=== PATIENT | male | born 1945 | race Caucasian/White ===

== ENCOUNTER 2017-05-21 16:00 | Inpatient (IN) | payer MEDICARE, BC ==
--- NOTE | 2017-05-23 19:00 | HP ---
HISTORY AND PHYSICAL: DATE OF ADMISSION/SURGERY: 06/05/17 DATE OF OFFICE VISIT: 05/23/17 SURGEON: Kelsie Mcdermott MD * (DICTATED BY ERICKA CHAVARRIA) PROCEDURE: Right total knee arthroplasty. CHIEF COMPLAINT: Right knee pain. HISTORY OF PRESENT ILLNESS: Mr. Park is a 72-year-old gentleman with complaints of right knee pain secondary to advanced osteoarthritis. He has failed conservative management and has elected to proceed with a right total knee arthroplasty, which is scheduled for 06/05/[address] Mcdermott. PAST MEDICAL HISTORY: Pacemaker, AFib, sleep apnea, BPH, hypertension, hyperlipidemia, sick sinus syndrome. PAST SURGICAL HISTORY: Pacemaker placement, tonsillectomy, appendectomy. CURRENT MEDICATIONS: 1. Cardizem 180 mg daily. 2. Saw palmetto. 3. Multivitamin. 4. Vitamin C. 5. Aspirin 81 mg daily. ALLERGIES: Toprol. FAMILY HISTORY: Pancreatic cancer, heart disease and hepatitis. SOCIAL HISTORY: This 72-year-old gentleman lives with his . He does not smoke, use drugs. Uses occasional alcohol. REVIEW OF SYSTEMS: A complete 14-point review of systems was reviewed with the patient, all negative and noncontributory. PHYSICAL EXAMINATION GENERAL: He is well developed, well nourished, in no acute distress. VITAL SIGNS: He stands 5 feet 8 inches tall, weighs 215 pounds. His blood pressure is 148/79, his heart rate is 60. HEENT: Normocephalic, atraumatic. NECK: Supple. No palpable lymph nodes. CARDIO: Regular rate and rhythm. Strong S1 and S2. ABDOMEN: Soft, nontender, and nondistended. NEUROLOGIC: He is alert and oriented x3. Cranial nerves II through XII are intact. MUSCULOSKELETAL: Right lower extremity, the skin is intact. There are no open wounds or abrasions. He has moderate joint effusion of the right knee. His lower extremity muscle group strengths are intact at 5/5. 5 to 120 degrees flexion. No varus or valgus instability. He has 2+ dorsalis pedis pulses and intact sensation. ASSESSMENT AND PLAN: Mr. Park is a 72-year-old gentleman with complaints of right knee pain secondary to advanced osteoarthritis. He has failed conservative management and has elected to proceed with a right total knee arthroplasty, which is scheduled for 06/05/[address] Mcdermott discussed the risks and benefits of the surgery at today's visit and all of his questions were answered. Coumadin, Percocet, Colace were sent to his pharmacy today for postoperative pain control and DVT prophylaxis. ERICKA CHAVARRIA [id number]/[facility] #: [id number] SAHRA
--- NOTE | 2017-11-13 17:02 | HP ---
HISTORY AND PHYSICAL: DATE OF ADMISSION/SURGERY: 11/25/17 DATE OF OFFICE VISIT: 11/12/17 SURGEON: Kelsie Mcdermott MD * (DICTATED BY ERICKA CHAVARRIA) PROCEDURE: Right total knee arthroplasty. CHIEF COMPLAINT: Right knee pain. HISTORY OF PRESENT ILLNESS: Mr. Park is a 72-year-old gentleman with end- stage osteoarthritis of the right knee. He has failed conservative management, elected to proceed with the right total knee arthroplasty, which is scheduled for 11/25/[address] Mcdermott. PAST MEDICAL HISTORY: AFib, high cholesterol, hypertension, BPH, sick sinus syndrome, sleep apnea, pacemaker. PAST SURGICAL HISTORY: Pacemaker placement, tonsillectomy. CURRENT MEDICATIONS: 1. Aspirin 81 mg daily. 2. Cardizem 180 mg daily. 3. Saw palmetto twice daily. 4. Multivitamin. 5. Vitamin C. ALLERGIES: To TOPROL. FAMILY HISTORY: Pancreatic cancer and heart disease. SOCIAL HISTORY: He is a 72-year-old gentleman who lives with his . He does not smoke or use drugs. Uses occasional alcohol. REVIEW OF SYSTEMS: A complete 14-point review of systems was reviewed with the patient; it was all negative or noncontributory. PHYSICAL EXAMINATION GENERAL: He is well developed, well nourished, in no acute distress. VITAL SIGNS: He stands 5 feet 8 inches tall, weighs 215 pounds. His blood pressure 130/86, his heart rate is 70. HEENT: Normocephalic, atraumatic. NECK: Supple. No palpable lymph nodes. PULMONARY: Lungs are clear to auscultation bilaterally. CARDIO: Regular rate and rhythm. Strong S1, S2. ABDOMEN: Soft, nontender, nondistended. MUSCULOSKELETAL: Right lower extremity, skin is intact. There are no open wounds or abrasions. He has tenderness over the medial and lateral joint line. 10 to 120 degrees of flexion. Varus alignment. No varus or valgus instability. Negative Tramaine's. 2+ dorsalis pedis pulses. 5/5 lower extremity strength and intact sensation. NEUROLOGICAL: Alert and oriented x3. Cranial nerves II through XII are intact. ASSESSMENT AND PLAN: Mr. Park is a 72-year-old gentleman with complaints of right knee pain secondary to end-stage osteoarthritis. He has failed conservative management, elected to proceed with a right total knee arthroplasty , which is scheduled for 11/25/[address] Mcdermott discussed the risks and benefits of the surgery at today's visit and all of his questions were answered. Coumadin, Colace, and Percocet were sent to his pharmacy for postoperative pain control and DVT prophylaxis. He will follow with Dr. Mcdermott 2 weeks after the surgery. ERICKA CHAVARRIA [id number]/[facility] #: [id number] MTDRonda
[2017-11-24] MEDS ORDERED: Buffered Lidocaine 0.9% SYRIN* 5 ML/SYR SYRINGE INTRADERM ONE (13:56)
--- OUTSIDE RECORDS SUMMARY | 2017-11-25 11:14 | XMS REPORT ---
:1945 External Reference #:[id number] Author Organization [facility] Address [address] [address] Phone [phone] Care Team Providers Name Role Phone Yosvany Ruiz DO Care Team Information Hat Binder Unavailable Payers Type Date Identification Numbers Payment Provider Subscriber Medicare Primary Effective: Policy Number: Medicare Fausto Park 2010 [id number] PayID: [id number] [address] [place] [address] [facility] Policy Number: [id number] [facility] Fausto Park PayID: [id number] [address] [place] [address] Problems Date Description Provider Status Onset: 07/27/2013 Benign prostatic hypertrophy without Yosvany Ruiz DO Active outflow obstruction Onset: 07/27/2013 Mixed hyperlipidemia Yosvany Ruiz DO Active Onset: 07/27/2013 Benign essential hypertension Yosvany Ruiz DO Active Onset: 02/07/2015 Pure hypercholesterolemia Active Onset: 02/08/2015 Atrial fibrillation Yosvany Ruiz DO Active Social History Type Date Description Comments Education Highest level completed, Doctorate Marital Status 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 ETOH Use Occasionally consumes wine Smoking Patient has never smoked Daily Caffeine Consumes on average 2 cups of coffee per day Allergies, Adverse Reactions, Alerts Date Description Reaction Status Severity Comments 07/27/2013 Gluten active 07/27/2013 Dairy active Medications Medication Date Status Form Strength Qnty SIG Indications Ordering Provider Aspirin 10/31/ Active Tablets 81mg 1 by mouth Stu Ruiz every day DO Yosvany Sulfacetamide 10/31/ Hx Solution 10% 5ml 1-2 drops H10.9 Blayne Ruiz 2017 - in the [facility], 11/15/ eyes every DO 2017 4 hours x 1 day, then 4 times a day for 1 week Multivitamins 12/11/ Active Capsules 30caps 1 by mouth Joseph 2013 every day DO Yosvany Vitamin C / Active Tablets 1000mg 1 by mouth Unknown 0000 every day Diltiazem HCL / Active Caps ER 180mg 90caps 1 by mouth Joseph, DOMINGUEZ 0000 24HR every day DO Yosvany Saw [place] / Active Capsules as Unknown 0000 directed Valacyclovir 06/24/ Hx Tablets 1gm 21tabs 1 po tid B02.9 Digiovanna HCL 2017 - for 7 days , 07/01/ Jennifer, 2017 JUTE BAG CLIPPER Sulfacetamide 12/02/ Hx Solution 10% 5ml 1-2 drops H10.9 Ruiz, Sodium 2016 - in the [facility], 12/17/ eyes every DO 2016 4 hours x 1 day, then 4 times a day for 1 week Betamethasone 12/11/ Hx Cream 0.05% 45gm apply to R21 Joseph Dipropionate 2016 - the skin [facility], 2-3 times DO 2015 a day Triamcinolone 12/08/ Hx Cream 0.1% 15gm apply to L30.9 Digiovanna Acetonide 2016 - ears bid , 12/11/ for 3 days 2015 only JUTE BAG CLIPPER Aspirin / Hx Tablets 325mg 1 by mouth Unknown 0000 - every day 2016 Vital Signs Date Vital Result Comment 10/31/2017 Body Temperature 97.9 F tympanic Weight 216.00 lb Heart Rate 76 /min BP Systolic 140 mmHg BP Diastolic 84 mmHg Respiratory Rate 18 /min Height 68.5 inches 5'8.50" 10/31/17 SA BMI (Body Mass Index) 32.4 kg/m2 08/29/2017 Weight 211.00 lb Heart Rate 60 /min BP Systolic 140 mmHg BP Diastolic 78 mmHg Respiratory Rate 18 /min Height 68.5 inches 5'8.50" BMI (Body Mass Index) 31.6 kg/m2 06/24/2017 Body Temperature 96.8 F Weight 214.38 lb Heart Rate 78 /min BP Systolic 148 mmHg BP Diastolic 68 mmHg Respiratory Rate 18 /min Height 68.5 inches 5'8.50" BMI (Body Mass Index) 32.1 kg/m2 06/16/2017 Body Temperature 97.7 F Weight 213.00 lb Heart Rate 68 /min BP Systolic 136 mmHg BP Diastolic 80 mmHg Respiratory Rate 18 /min Height 68.5 inches 5'8.50" BMI (Body Mass Index) 31.9 kg/m2 05/15/2017 Weight 207.00 lb Heart Rate 62 /min BP Systolic 130 mmHg BP Diastolic 72 mmHg Respiratory Rate 18 /min Height 68.5 inches 5'8.50" BMI (Body Mass Index) 31.0 kg/m2 12/02/2016 Weight 215.00 lb Heart Rate 58 /min BP Systolic 128 mmHg BP Diastolic 78 mmHg Height 68.5 inches 5'8.50" (08/2016) BMI (Body Mass Index) 32.2 kg/m2 08/27/2016 Weight 204.00 lb Heart Rate 66 /min BP Systolic 138 mmHg BP Diastolic 80 mmHg Respiratory Rate 18 /min Height 68.5 inches 5'8.50" (08/2016) BMI (Body Mass Index) 30.6 kg/m2 07/12/2016 Weight 204.00 lb Heart Rate 64 /min BP Systolic 136 mmHg BP Diastolic 64 mmHg Respiratory Rate 18 /min Height 68 inches 5'8" BMI (Body Mass Index) 31.0 kg/m2 12/11/2015 Weight 211.00 lb Heart Rate 66 /min BP Systolic 134 mmHg L/Reg BP Diastolic 82 mmHg L/Reg Respiratory Rate 17 /min Height 68 inches 5'8" BMI (Body Mass Index) 32.1 kg/m2 12/08/2015 Body Temperature 97.5 F Weight 207.00 lb Heart Rate 58 /min BP Systolic 134 mmHg BP Diastolic 80 mmHg Respiratory Rate 18 /min Height 68 inches 5'8" BMI (Body Mass Index) 31.5 kg/m2 08/22/2015 Weight 208.00 lb Heart Rate 58 /min BP Systolic 138 mmHg BP Diastolic 64 mmHg Respiratory Rate 18 /min Height 68 inches 5'8" BMI (Body Mass Index) 31.6 kg/m2 02/08/2015 Weight 204.00 lb Heart Rate 52 /min BP Systolic 136 mmHg BP Diastolic 86 mmHg Respiratory Rate 18 /min Height 68 inches 5'8" BMI (Body Mass Index) 31.0 kg/m2 11/07/2014 BP Systolic 138 mmHg BP Diastolic 86 mmHg 11/07/2014 Weight 205.00 lb Heart Rate 60 /min BP Systolic 124 mmHg BP Diastolic 74 mmHg Respiratory Rate 18 /min Height 68 inches 5'8" 06/08/2014 Weight 198.00 lb Heart Rate 60 /min BP Systolic 130 mmHg BP Diastolic 80 mmHg Respiratory Rate 18 /min Height 68 inches 5'8" 04/27/2014 Weight 199.00 lb Heart Rate 68 /min BP Systolic 134 mmHg BP Diastolic 74 mmHg Respiratory Rate 18 /min Height 68 inches 5'8" 01/25/2014 Weight 202.00 lb Heart Rate 72 /min BP Systolic 142 mmHg BP Diastolic 88 mmHg Respiratory Rate 18 /min Height 68 inches 5'8" 12/22/2013 BP Systolic 154 mmHg BP Diastolic 100 mmHg 12/22/2013 Weight 208.00 lb Heart Rate 64 /min BP Systolic 166 mmHg BP Diastolic 80 mmHg Respiratory Rate 18 /min 10/13/2013 BP Systolic 154 mmHg Home Monitor BP Diastolic 78 mmHg Home Monitor 10/13/2013 Weight 209.00 lb Heart Rate 68 /min BP Systolic 150 mmHg BP Diastolic 82 mmHg Respiratory Rate 18 /min 09/07/2013 BP Systolic 158 mmHg 160/90- R arm BP Diastolic 84 mmHg 160/90- R arm 09/07/2013 Weight 206.00 lb Heart Rate 58 /min BP Systolic 132 mmHg 146/82- L arm BP Diastolic 82 mmHg 146/82- L arm Respiratory Rate 18 /min 08/10/2013 BP Systolic 146 mmHg BP Diastolic 76 mmHg 08/10/2013 Weight 204.00 lb Heart Rate 64 /min BP Systolic 148 mmHg BP Diastolic 84 mmHg Respiratory Rate 18 /min 07/27/2013 BP Systolic 164 mmHg BP Diastolic 102 mmHg 07/27/2013 Weight 202.00 lb Heart Rate 60 /min BP Systolic 148 mmHg BP Diastolic 96 mmHg Respiratory Rate 18 /min Height 68 inches 5'8" (07/2013) Results Test Date Test Result H/L Range Note Lipid Panel 01/25/2014 Chol/HDL Ratio 4.3 ratio Cholesterol 194.0 mg/dL 50.0-199.0 HDL 45.0 mg/dL 29.0-67.0 LDL, Calculated 113.0 mg/dL 20.0-129.0 Triglycerides 180.0 mg/dL 30.0-249.0 vLDL 36.0 ng/dL Laboratory test finding 01/25/2014 % Baso. 1.7 % 0.0-2.0 % Eos. 4.8 % High 0.0-4.0 % Lymph 21 % 20-44 % [place] 8.6 % 2.0-10.0 % Holly 64 % 50-70 A/G Ratio 1.8 ratio 1.6-2.2 Absolute Baso. 0.1 K/ul 0.0-0.3 Absolute Eos. 0.4 K/ul 0.0-0.5 Absolute Lymph. 1.6 K/ul 0.8-4.8 Absolute [place]. 0.7 K/ul 0.1-1.0 Absolute Holly. 4.83 K/ul 2.05-7.63 Albumin 4.2 g/dL 3.5-5.0 Alk. Phos. 65.0 U/L 30.0-126.0 Alt 26.0 U/L 21.0-72.0 Anion Gap 7.0 mmol/L Low 10.0-20.0 Ast 17.0 U/L 17.0-59.0 BUN 16.0 mg/dL 9.0-21.0 BUN/Creat Ratio 13.3 ratio 12.0-20.0 Calcium 9.2 mg/dL 8.7-10.5 Chloride 106.0 mmol/L 98.0-107.0 Co2 27.0 mmol/L 22.0-30.0 Creatinine-Serum 1.2 mg/dL 0.8-1.5 Globulin 2.4 g/dL Low 2.7-4.3 Glucose 113.0 mg/dL High 75.0-110.0 HCT 41.1 % 37.0-51.0 HGB 13.7 Gm/dl 12.0-16.0 MCH 30.7 pg 26.0-32.0 MCHC 33.3 g/dL 31.0-36.0 MCV 92.2 Fl 80.0-97.0 MPV 8.2 fL 6.0-10.0 PLT 253 K/ul 140-440 Potasium 3.9 mmol/L 3.6-5.0 RBC 4.5 M/ul 4.2-6.3 RDW 11.8 % 11.5-14.5 Sodium 140.0 mmil/L 137.0-145.0 TSH 1.44 uIU/ml 0.50-6.00 Total Bilirubin 0.7 mg/dL 0.2-1.3 Total Protein 6.6 g/dL 6.3-8.2 WBC 7.5 K/ul 4.1-10.9 eGFR 65.9 mi/minper1.73 1 1 For -[place] patients multiply result by 1.180 Procedures Date CPT Code Description Status 10/31/2017 22220 Electrocardiogram Complete Completed 08/29/2017 15908 Brief Emotional/Behav Assessment W/ Scoring Doc Per Completed Standard Inst 08/29/2017 10543 Screening Hearing Test Completed 07/12/2016 64713 X-Ray Knee Complete W/Obliques & Tunnel And/Or Completed Standing Views Encounters Type Date Location Provider CPT E/M Dx Office Visit 08/29/2017 2:00p [place] [address] Z00.01 M17.11 I10 E78.2 N40.0 G47.33 E66.09 I48.91 Office Visit 06/24/2017 2:30p [place] [address] B02.9 Office Visit 06/16/2017 1:30[place] [address] B02.9 Office Visit 05/15/2017 1:30[place] [address] Z01.810 M17.11 I10 E78.2 N40.0 G47.33 E66.09 I48.91 Office Visit 12/02/2016 1:00[place] [address] H10.9 Office Visit 08/27/2016 10:00a [place] [address] Z00.00 I10 E78.2 N40.0 G47.33 E66.09 I48.91 M25.561 Office Visit 07/12/2016 11:00[place] [address] M25.561 Office Visit 12/11/2015 11:00[place] [address] R21 Office Visit 12/08/2015 3:30[place] [address] L30.9 Office Visit 08/22/2015 9:00[place] [address] I10 E78.2 N40.0 G47.33 E66.09 I48.91 Office Visit 02/08/2015 1:45p [facility] [place] [address] 401.1 272.2 600.00 327.23 278.00 427.31 Plan of Care Future Appointment(s):05/01/2018 1:30 pm - Yosvany Ruiz DO at [facility]10/31/2017 - Yosvany Ruzi DOZ01.810 Encounter for preprocedural cardiovascular examinationFollow up:Follow up in 6 months.M17.11 Unilateral primary osteoarthritis, RIGHT kneeI10 Essential (primary) hypertensionNew Labs:CBC With Auto DiffBasic (BMP)E78.2 Mixed cquciebsoixcwdN53.0 Benign prostatic hyperplasia without lower urinry tract sympG47.33 Obstructive sleep apnea (adult ) (pediatric)E66.09 Other obesity due to excess kcwytaokO87.91 Unspecified atrial yejrfiferpaoQ89.31 Sciatica, RIGHT sideH10.9 Unspecified conjunctivitisNew Medication:Sulfacetamide Sodium 10 %
--- OUTSIDE RECORDS SUMMARY | 2017-11-25 11:14 | XMS REPORT ---
:1945 External Reference #:[id number] Author Organization [facility] Address [address] [address] Phone [phone] Care Team Providers Name Role Phone RuizYosvany melaraDO Primary Care Physician Unavailable Payers Type Date Identification Numbers Payment Provider Subscriber Medicare Primary Policy Number: [id number] Medicare [place]o Park PayID: [id number] [address] [place] [address] [facility] Part [facility] Policy Number: [id number] [facility] Fausto Park PayID: [id number] [address] [place] [address] Problems Date Description Provider Status Onset: 11/01/2013 Sinus node dysfunction Dheeraj Stewart M.D., Active PATRICK ZHNOG Onset: 10/28/2014 Atrial fibrillation Dheeraj Stewart M.D., Active PATRICK ZHONG Onset: 10/13/2003 Obstructive sleep apnea syndrome Liliana Mckay DNP, RN, Active [employer]-BC Onset: 2017 Cardiac pacemaker in situ Dheeraj Stewart M.D., Active PATRICK ZHONG Onset: 04/30/2017 Localized, primary osteoarthritis Kelsie Mcdermott M.D. 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 ETOH Use Consumes 1 glass of wine per day Smoking Patient has never smoked Recreational Drug Use Denies Drug Use Daily Caffeine Consumes on average 1 cup of regular coffee per day Daily Caffeine Comsumes on average 1 cup of decaff coffee per day Exercise Type/Frequency Exercises regularly walking and Jamie-chi Allergies, Adverse Reactions, Alerts Date Description Reaction Status Severity Comments 10/28/2014 Toprol XL fatigue active 04/30/2017 Gels active 11/01/2013 NKDA inactive Medications Medication Date Status Form Strength Qnty SIG Indications Ordering Provider Coumadin Active Tablets 2mg 90tabs take 1-3 Kelsie 017 tabs by Baldemar, mouth at 5 M.D. at night as directed Percocet Active Tablets 5-325mg 90tabs 1-2 by Kelsie 017 mouth Baldemar, every 4-6 M.D. hours as needed pain. Colace Active Capsules 100mg 90caps 1 tab by Kelsie 017 mouth 2-3 Baldemar, times a M.D. day as needed Aspirin Active Chewtabs 81mg 1 daily Dheeraj Stewart M.D., PATRICK ZHONG Cardizem CD Active Caps ER 180mg 30caps 1 by mouth Dheeraj Palacios 014 24HR every day Raven Stewart, PATRICK ZHONG Saw Whitman Active 1 po bid Unknown 000 Multivital Active Tablets 1 po qd Unknown 000 Vitamin C Active Capsules 500-400mg- 1 by mouth Unknown 000 Unit every day Toprol XL Hx Tablets ER 25mg 90tabs 1 by mouth 427.31 Dheeraj Palacios 014 - 24HR every day Terry M.DMoise, 014 PATRICK ZHONG Vitamin B 6 Hx Tablets 50mg 1 po 1 x Dheeraj Palacios 013 - per week Terry M.DMoise, 013 PATRICK ZHONG Lisinopril Hx Tablets 20mg 90tabs 1 po qd Unknown 000 - 014 Vitamin C Hx Tablets 500mg 90tabs 1 po bid Unknown 000 - 017 Vitamin D3 Hx Capsules 400Unit 1 po qd Unknown 000 - 013 Simvastatin Hx Tablets 5mg 90tabs 1 po qd Unknown 000 - 014 Multivitamin Hx Tablet 1 po qd Unknown 000 - 014 BP Select Hx Capsules 1 po qd Unknown 000 - 015 Aspir-[address] 81mg 1 by mouth Unknown 000 - every day 017 Flex Joint Hx Unknown 000 - 017 Medications Administered in Office Medication Date Status Form Strength Qnty SIG Indications Ordering Provider Inj, Administered Injection Kem S. Regadenoson, 017 Love, DO 0.1 MG FACC Technetium TC Administered Injection Kem S. 99M 017 Love, DO Tetrofosmin, FACC Per Unit Dose Up To 40 Millicuries Inj, Administered Injection Dheeraj Palacios Regadenoson, 015 Stewart, 0.1 MG M.D., FACC, FASNC Technetium TC Administered Injection Dheeraj Palacios 99M 015 Stewart, Tetrofosmin, M.D., FACC, Per Unit Dose FASNC Up To 40 Millicuries Vital Signs Date Vital Result Comment 11/12/2017 Height 68 inches 5'8" Weight 215.00 lb w/ shoes Heart Rate 70 /min reg BP Systolic Sitting 130 mmHg Lue, lg cuff BP Diastolic Sitting 86 mmHg Lue, lg cuff Respiratory Rate 16 /min Pain Level 4 right knee BMI (Body Mass Index) 32.7 kg/m2 10/27/2017 Height 68 inches 5'8" Weight 213.50 lb No shoes Heart Rate 58 /min BP Systolic Sitting 148 mmHg Rue lrg cuff BP Diastolic Sitting 78 mmHg Rue lrg cuff BP Systolic Standing 146 mmHg Rue lrg cuff BP Diastolic Standing 80 mmHg Rue lrg cuff Respiratory Rate 16 /min BMI (Body Mass Index) 32.5 kg/m2 Ejection Fraction 55-60% 05/14/2017-echo 07/28/2017 Height 68.75 inches 5'8.75" Weight 213.00 lb Heart Rate 66 /min BP Systolic 125 mmHg BP Diastolic 84 mmHg Respiratory Rate 16 /min Body Temperature 97.7 F BMI (Body Mass Index) 31.7 kg/m2 05/23/2017 Height 68.75 inches 5'8.75" Weight 214.00 lb Heart Rate 60 /min BP Systolic 148 mmHg BP Diastolic 79 mmHg Body Temperature 97.6 F BMI (Body Mass Index) 31.8 kg/m2 05/19/2017 Height 68.75 inches 5'8.75" Weight 212.00 lb with shoes Heart Rate 60 /min BP Systolic Sitting 126 mmHg Rue reg cuff BP Diastolic Sitting 74 mmHg Rue reg cuff BP Systolic Standing 130 mmHg Rue reg cuff BP Diastolic Standing 88 mmHg Rue reg cuff Respiratory Rate 16 /min BMI (Body Mass Index) 31.5 kg/m2 Ejection Fraction 55-60% date 05/14/17 ECHO 04/30/2017 Height 68.75 inches 5'8.75" Weight 214.00 lb Heart Rate 59 /min BP Systolic 149 mmHg BP Diastolic 72 mmHg Body Temperature 99.9 F Pain Level 5 BMI (Body Mass Index) 31.8 kg/m2 2017 Height 69 inches 5'9" Weight 206.50 lb No shoes Heart Rate 56 /min BP Systolic Sitting 128 mmHg Lue reg cuff BP Diastolic Sitting 78 mmHg Lue reg cuff BP Systolic Standing 138 mmHg Lue reg cuff BP Diastolic Standing 88 mmHg Lue reg cuff Respiratory Rate 17 /min BMI (Body Mass Index) 30.5 kg/m2 Ejection Fraction 62% 11/15/2014-echo 12/17/2016 Height 69 inches 5'9" Weight 199.00 lb per pt Heart Rate 67 /min BP Systolic Sitting 142 mmHg BP Diastolic Sitting 78 mmHg Respiratory Rate 16 /min O2 % BldC Oximetry 97 % BMI (Body Mass Index) 29.4 kg/m2 01/09/2016 Height 68 inches 5'8" Weight 209.00 lb Heart Rate 60 /min BP Systolic Sitting 148 mmHg Ra reg cuff BP Diastolic Sitting 90 mmHg Ra reg cuff BP Systolic Standing 144 mmHg Ra BP Diastolic Standing 92 mmHg Ra Respiratory Rate 16 /min BMI (Body Mass Index) 31.8 kg/m2 Ejection Fraction 62% 11/15/14 ECHO 07/11/2015 Height 69 inches 5'9" Weight 210.00 lb Heart Rate 60 /min BP Systolic Sitting 132 mmHg BP Diastolic Sitting 78 mmHg Respiratory Rate 18 /min O2 % BldC Oximetry 98 % BMI (Body Mass Index) 31.0 kg/m2 Neck Circumference in inches 18 12/13/2014 Height 68 inches 5'8" Weight 202.00 lb no shoes Heart Rate 60 /min BP Systolic Sitting 142 mmHg LA, reg cuff BP Diastolic Sitting 78 mmHg LA, reg cuff BP Systolic Standing 136 mmHg LA BP Diastolic Standing 78 mmHg LA Respiratory Rate 16 /min BMI (Body Mass Index) 30.7 kg/m2 10/28/2014 Height 68 inches 5'8" Weight 208.00 lb Heart Rate 70 /min BP Systolic Sitting 180 mmHg LA, reg BP Diastolic Sitting 92 mmHg LA, reg BP Systolic Standing 174 mmHg LA, reg BP Diastolic Standing 92 mmHg LA, reg BMI (Body Mass Index) 31.6 kg/m2 11/01/2013 Height 68 inches 5'8" Weight 207.00 lb without shoes Heart Rate 54 /min BP Systolic Sitting 136 mmHg R arm reg cuff BP Diastolic Sitting 90 mmHg R arm reg cuff BP Systolic Standing 140 mmHg R arm reg cuff BP Diastolic Standing 90 mmHg R arm reg cuff Respiratory Rate 17 /min BMI (Body Mass Index) 31.5 kg/m2 Results Test Date Test Result H/L Range Note Comp Metabolic Panel 05/23/2017 Sodium 139 mmol/L 133-145 1 Potassium 3.9 mmol/L 3.5-5.0 1 Chloride 103 mmol/L 101-111 1 Co2 Carbon Dioxide 29 mmol/L 22-32 1 Anion Gap 7 mmol/L 2-11 1 Glucose 86 mg/dL 70-100 1 Blood Urea Nitrogen 19 mg/dL 6-24 1 Creatinine 1.23 mg/dL High 0.67-1.17 1 BUN/Creatinine Ratio 15.4 8-20 1 Calcium 9.2 mg/dL 8.6-10.3 1 Total Protein 6.8 g/dL 6.4-8.9 1 Albumin 4.4 g/dL 3.2-5.2 1 Globulin 2.4 g/dL 2-4 1 Albumin/Globulin Ratio 1.8 1-3 1 Total Bilirubin 0.40 mg/dL 0.2-1.0 1 Alkaline Phosphatase 67 U/L 34-104 1 Alt 25 U/L 7-52 1 Ast 20 U/L 13-39 1 Egfr Non- 57.5 >60 1 Egfr 74.0 >60 1, 2 Urinalysis Profile 05/23/2017 Urine Color Yellow 1 Urine Appearance Clear 1 Urine Specific Climax 1.017 1.010-1.030 1 Urine pH 7.0 5-9 1 Urine Urobilinogen Negative Negative 1 Urine Ketones Negative Negative 1 Urine Protein Negative Negative 1 Urine Leukocytes Negative Negative 1 Urine Blood Negative Negative 1 * * Negative 1, 3 Urine Nitrite Negative Negative 1 Urine Bilirubin Negative Negative 1 Urine Glucose Negative Negative 1 Inr/Protime 05/23/2017 Inr 0.90 0.89-1.11 1 Laboratory test finding 05/23/2017 Partial Thrombo Time 27.5 seconds 26.0 -36.3 1, 4 PTT Type & Screen 05/23/2017 Patient Blood Type A Positive 1 Antibody Screen NEGATIVE 1 Urine Culture And 05/23/2017 Urine Culture SEE RESULT 1, 5 Sensitivities BELOW Xray 04/30/2017 Knee 3 Views LT <pending&gt ; Laboratory test 08/20/2016 Hemoglobin A1c 5.5 % Less than 6 finding (Glyco HGB) 6.0 Insulin Level 32.1 mcIU/mL 2.6 - 24.9 7 CBC Auto Diff 08/20/2016 White Blood Count 7.3 10^3/uL 3.5-10.8 Red Blood Count 4.51 10^6/uL 4.0-5.4 Hemoglobin 13.5 g/dL Low 14.0-18.0 Hematocrit 40 % Low 42-52 Mean Corpuscular Volume 89 fL 80-94 Mean Corpuscular Hemoglobin 30 pg 27-31 Mean Corpuscular HGB Conc 34 g/dL 31-36 Red Cell Distribution Width 14 % 10.5-15 Platelet Count 212 10^3/uL 150-450 Mean Platelet Volume 10 um3 7.4-10.4 Abs Neutrophils 5.1 10^3/uL 1.5-7.7 Abs Lymphocytes 1.3 10^3/uL 1.0-4.8 Abs Monocytes 0.7 10^3/uL 0-0.8 Abs Eosinophils 0.2 10^3/uL 0-0.6 Abs Basophils 0.1 10^3/uL 0-0.2 Abs Nucleated RBC 0 10^3/uL Granulocyte % 70.2 % 38-83 Lymphocyte % 17.4 % Low 25-47 Monocyte % 9.1 % High 1-9 Eosinophil % 2.1 % 0-6 Basophil % 1.2 % 0-2 Nucleated Red Blood Cells % 0 Laboratory test finding 08/20/2016 TSH (Thyroid Stim Horm) 1.86 mcIU/mL 0.34-5.60 Lipid Profile 08/20/2016 Triglycerides 121 mg/dL 8 (Trig/Chol/HDL) Cholesterol 195 mg/dL 9 HDL Cholesterol 47.1 mg/dL 10 LDL Cholesterol 124 mg/dL 11 Basic Metabolic Panel 08/20/2016 Sodium 139 mmol/L 133-145 Potassium 4.2 mmol/L 3.5-5.0 Chloride 103 mmol/L 101-111 Co2 Carbon Dioxide 27 mmol/L 22-32 Anion Gap 9 mmol/L 2-11 Glucose 111 mg/dL High 70-100 Blood Urea Nitrogen 22 mg/dL 6-24 Creatinine 1.30 mg/dL High 0.67-1.17 BUN/Creatinine Ratio 16.9 8-20 Calcium 9.3 mg/dL 8.6-10.3 Egfr Non- 54.1 >60 Egfr 69.6 >60 12 Laboratory test finding 10/27/2014 Alt 23 U/L 7-52 Ast 16 U/L 13-39 TSH (Thyroid Stimulating Horm) 2.29 IU/mL 0.34-5.60 Lipid Profile (Trig/Chol/HDL) 10/27/2014 Triglycerides 141 mg/dL 13 Cholesterol 194 mg/dL 14 HDL Cholesterol 46.2 mg/dL 15 LDL Cholesterol 120 mg/dL 16 Basic Metabolic Panel 10/27/2014 Sodium 139 mmol/L 133-145 Potassium 4.1 mmol/L 3.5-5.0 Chloride 104 mmol/L 101-111 Co2 Carbon Dioxide 31 mmol/L 22-32 Anion Gap 4 mmol/L 2-11 Glucose 93 mg/dL 70-100 Blood Urea Nitrogen 20 mg/dL 6-24 Creatinine 1.23 mg/dL High 0.67-1.17 BUN/Creatinine Ratio 16.3 8-20 Calcium 8.9 mg/dL 8.6-10.3 Egfr Non- 58.0 >60 Egfr 74.6 >60 17 CBC Auto Diff 10/27/2014 White Blood Count 7.4 10^3/uL 4.8-10.8 Red Blood Count 4.30 10^6/uL 4.0-5.4 Hemoglobin 13.3 g/dL Low 14.0-18.0 Hematocrit 40 % Low 42-52 Mean Corpuscular Volume 92 fL 80-94 Mean Corpuscular Hemoglobin 31 pg 27-31 Mean Corpuscular HGB Conc 34 g/dL 31-36 Red Cell Distribution Width 13 % 10.5-15 Platelet Count 168 10^3/uL 150-450 Mean Platelet Volume 11 um3 High 7.4-10.4 Abs Neutrophils 5.1 10^3/uL 1.5-7.7 Abs Lymphocytes 1.4 10^3/uL 1.0-4.8 Abs Monocytes 0.7 10^3/uL 0-0.8 Abs Eosinophils 0.2 10^3/uL 0-0.6 Abs Basophils 0.1 10^3/uL 0-0.2 Abs Nucleated RBC 0 10^3/uL Granulocyte % 69.2 % 38-83 Lymphocyte % 18.8 % Low 25-47 Monocyte % 8.9 % 1-9 Eosinophil % 2.3 % 0-6 Basophil % 0.8 % 0-2 Nucleated Red Blood Cells % 0 MRSA/Vre Screen 08/30/2011 MRSA/Vre Culture NFICU 18 1 [id number] 2 Because ethnic data is not always readily available, this report includes an eGFR for both -Americans and non- Americans. The National Kidney Disease Education Program (NKDEP) does not endorse the use of the MDRD equation for patients that are not between the ages of 18 and 70, are , have extremes of body size, muscle mass, or nutritional status, or are non- or non-. According to the National Kidney Foundation, irrespective of diagnosis, the stage of the disease is based on the level of kidney function: Stage Description GFR(mL/min/1.73 m(2)) 1 Kidney damage with normal or decreased GFR 90 2 Kidney damage with mild decrease in GFR 60-89 3 Moderate decrease in GFR 30-59 4 Severe decrease in GFR 15-29 5 Kidney failure <15 (or dialysis) 3 *Ascorbic acid is present which may interfere with detection of blood. 4 [id number] 5 SEE RESULT BELOW Name: FAUSTO PARK : [address]: Kelsie Mcdermott MD Acct: [id number] Unit: [id number] AGE: 72 Location: [facility] Re05/23/17 SEX: M Status: REG REF SPEC: [id number] GAMALIEL: 05/23/17-[address] [facility] [address]: Kelsie Mcdermott MD REQ: [id number] RECD: 05/23/17 STATUS: COMP _ SOURCE: URINE SPDESC: ORDERED: Urine Culture COMMENTS: [id number] QUERIES: Urine Source: Clean Catch Procedure Result Reported Site Urine Culture Final 05/24/17- 1249 ML No Growth (<1,000 CFU/mL) * ML - MAIN LAB ([facility]) . END OF REPORT * ML=Testing performed at Main Lab DEPARTMENT OF PATHOLOGY, [address] [place] [address] Bi Truong M.D. Director [facility] # [id number] 6 Therapeutic target for the treatment of diabetes Mellitus patients is <7% HBA1C, and in selective patients <6.0%.Please refer to [place] Diabetes Association Diabetic care guidelines for further information. 7 Test Performed by: [place] [address] Line Construction Engineer: Andrey Cabrales II, M.D., Ph.D. 8 Desirable <150 Borderline high 150-199 High 200-499 Very High >500 9 Desirable <200 Borderline high 200-239 High >239 10 Low <40 Desirable: 40-60 High: >60 11 Desirable: <100 mg/dL Near Optimal: 100-129 mg/dL Borderline High: 130-159 mg/dL High: 160-189 mg/dL Very High: >189 mg/dL 12 Because ethnic data is not always readily available, this report includes an eGFR for both -Americans and non- Americans. The National Kidney Disease Education Program (NKDEP) does not endorse the use of the MDRD equation for patients that are not between the ages of 18 and 70, are , have extremes of body size, muscle mass, or nutritional status, or are non- or non-. According to the National Kidney Foundation, irrespective of diagnosis, the stage of the disease is based on the level of kidney function: Stage Description GFR(mL/min/1.73 m(2)) 1 Kidney damage with normal or decreased GFR 90 2 Kidney damage with mild decrease in GFR 60-89 3 Moderate decrease in GFR 30-59 4 Severe decrease in GFR 15-29 5 Kidney failure <15 (or dialysis) 13 Desirable <150 Borderline high 150-199 High 200-499 Very High >500 14 Desirable <200 Borderline high 200-239 High >239 15 Low <40 Desirable: 40-60 High: >60 16 Desirable <100 Near Optimal 100-129 Borderline high 130-159 High 160-189 Very High >189 17 Because ethnic data is not always readily available, this report includes an eGFR for both -Americans and non- Americans. The National Kidney Disease Education Program (NKDEP) does not endorse the use of the MDRD equation for patients that are not between the ages of 18 and 70, are , have extremes of body size, muscle mass, or nutritional status, or are non- or non-. According to the National Kidney Foundation, irrespective of diagnosis, the stage of the disease is based on the level of kidney function: Stage Description GFR(mL/min/1.73 m(2)) 1 Kidney damage with normal or decreased GFR 90 2 Kidney damage with mild decrease in GFR 60-89 3 Moderate decrease in GFR 30-59 4 Severe decrease in GFR 15-29 5 Kidney failure <15 (or dialysis) 18 NO MRSA ISOLATED Procedures Date CPT Code Description Status 10/27/2017 36996 EKG Tracing & Interpretation Completed 05/20/2017 83871 Pace Maker Eval W/Iterative Adjment Dual Lead Completed 05/19/2017 51887 EKG Tracing & Interpretation Completed 05/15/2017 10252 Stress Test Completed 05/15/2017 06968 Myocardial Perfusion Imaging Tomographic (Spect) Completed Multiple Studies 05/14/2017 15891 ECHO Transthoracic, Real-Time 2D With Doppler And Color Completed Flow 2017 40205 EKG Tracing & Interpretation Completed 11/22/2016 46948 Pace Maker Eval W/Iterative Adjment Dual Lead Completed 05/20/2016 96296 Pace Maker Eval W/Iterative Adjment Dual Lead Completed 01/09/2016 95120 EKG Tracing & Interpretation Completed 11/16/2015 46643 Pace Maker Eval W/Iterative Adjment Dual Lead Completed 05/15/2015 60939 Interrogation Device Eval In Person W/DR Completed Analysis,Single,Dual,Mul 11/21/2014 70941 Stress Test Completed 11/21/2014 13480 Myocardial Perfusion Imaging Tomographic (Spect) Completed Multiple Studies 11/15/2014 68574 ECHO Transthoracic, Real-Time 2D With Doppler And Color Completed Flow 10/28/2014 76657 EKG Tracing & Interpretation Completed 10/26/2014 50272 Pace Maker Eval W/Iterative Adjment Dual Lead Completed 04/26/2014 03195 Pace Maker Eval W/Iterative Adjment Dual Lead Completed 10/26/2013 47108 Pace Maker Eval W/Iterative Adjment Dual Lead Completed 04/27/2013 12469 Pace Maker Eval W/Iterative Adjment Dual Lead Completed 04/21/2013 98246 EKG Tracing & Interpretation Completed 10/27/2012 64597 Pace Maker Eval W/Iterative Adjment Dual Lead Completed 08/03/2011 97189 EKG, Interpretation Only Completed Encounters Type Date Location Provider CPT E/M Dx Office Visit 10/27/2017 [facility] Philip Stewart, 15944 I49.5 8:45a Katarzyna Carbajal, TREVIN, FASDE Z01.810 M17.11 Z95.0 Office Visit 07/28/2017 2:45p [facility] Kelsie Mcdermott M.D. 67063 M25.561 [facility] M25.461 M17.11 Office Visit 05/19/2017 3:30p [facility] Philip Stewart, 23651 I49.5 Katarzyna Carbajal, TREVIN, [facility] I25.10 I25.2 Z95.0 I48.0 Z01.810 M17.11 Office Visit 04/30/2017 9:00a [facility] Kelsie Mcdermott M.D. 88728 M25.561 [facility] M25.461 M17.11 Office Visit 2017 1:00p [facility] Philip Stewart, 29311 Z95.0 Katarzyna Carbajal, TREVIN, FASDE I25.10 Office Visit 12/17/2016 9:30a [facility] Liliana Mckay, 26331 G47.33 [facility] KAYLIE FISH, [facility]- Office Visit 01/09/2016 1:30p [facility] Stewart, 29592 I49.5 Katarzyna Carbajal, [facility]IN [facility] Office Visit 07/11/2015 8:00a [facility] Liliana Mckay, 38351 327.23 Services [facility] [employer] KAYLIE FISH, [facility]- Office Visit 12/13/2014 1:00p [facility] Dheeraj Philip Stewart, 98866 427.31 Katarzyna Carbajal, [facility] Office Visit 10/28/2014 1:00p [facility] Dheeraj Philip Stewart, 89206 427.31 MGarrett, [facility], [facility] Office Visit 11/01/2013 8:45a [facility] Dheerajguillermo Stewart, 68453 427.81 Katarzyna Carbajal, [facility], FASDE Office Visit 11/02/2012 11:15a [facility] Palacios Stewart, 59857 427.1 [facility] Raven, [facility]IN [facility], [facility] Office Visit 08/04/2011 9:36a [facility] S. 55372 794.31 Raven Guo 401.1 786.50 426.13 272.4 Office Visit 08/03/2011 9:36a [facility] S. Sari, 78064 794.31 Raven 786.50 426.13 426.4 401.1 Plan of Care Future Appointment(s):12/10/2017 9:30 am - Kelsie Mcdermott M.D. at [facility]11/25/2017 7:30 am - ERICKA Meléndez at [facility]11/25/2017 7:30 am - Vitaliy David PA-C at [facility]11/25/2017 7:30 am - ERICKA Viramontes at [facility]11/21/2017 9:15 am - Ica Pacer Schedule at [facility]11/25/2017 7:30 am - Kelsie Mcdermott M.D. at [facility]/12/2017 - Kelsie Mcdermott M.D.M25.561 Pain in right kneeFollow up:Follow up: 2 weeks after gvqstkkC23.461 Effusion, right kneeM17.11 Unilateral primary osteoarthritis, right knee
[2017-11-25] MEDS ORDERED: ceFAZolin 2 GM PREMIX (*) 2 GM/50 ML BAG IVPB ONE (11:40)
[2017-11-25] MEDS ORDERED: Buffered Lidocaine 0.9% SYRIN* 5 ML/SYR SYRINGE ONE (11:40)
[2017-11-25] MEDS ORDERED: Bupivacaine 0.25% SDV* 30 ML ONE (14:17)
[2017-11-25] MEDS ORDERED: Midazolam* 1 MG/ML 2 ML VIAL (2 MG) ONE ×2 (14:17→14:22)
[2017-11-25] MEDS ORDERED: fentaNYL* 50 MCG/ML 2 ML VIAL (100 MCG VIAL) ONE ×3 (14:22→17:57)
[2017-11-25] MEDS ORDERED: Propofol* 10 MG/ML 20 ML BTL IV PUSH ONE (14:22)
[2017-11-25] MEDS ORDERED: Atracurium* 10 MG/ML 10 ML VIAL ONE ×2 (14:47→15:01)
[2017-11-25] MEDS ORDERED: Dexamethasone IV* 4 MG/ML 1 ML (4 MG) ONE (15:02)
[2017-11-25] MEDS ORDERED: Acetaminophen TAB* 325 MG PO PRN (15:35)
[2017-11-25] MEDS ORDERED: oxyCODONE/Acetamin 5/325 MG* TAB PO PRN (15:35)
[2017-11-25] MEDS ORDERED: Magnesium Hydroxide LIQ* 30 ML UDC PO PRN ×2 (15:35→15:40)
[2017-11-25] MEDS ORDERED: oxyCODONE TAB* 5 MG TAB PO PRN (15:35)
[2017-11-25] MEDS ORDERED: Cyclobenzaprine TAB* 10 MG PO PRN (15:40)
[2017-11-25] MEDS ORDERED: Ondansetron TAB* 4 MG PO PRN (15:40)
[2017-11-25] MEDS ORDERED: diPHENhydraMINE IV* 50 MG/ML 1 ml VIAL (BENADRYL) IV PRN (15:40)
[2017-11-25] MEDS ORDERED: Bisacodyl SUPP* 10 MG SUPP PR PRN (15:40)
[2017-11-25] MEDS ORDERED: Polyethylene Glycol 3350* 17 GM PACKET PO PRN (15:40)
[2017-11-25] MEDS ORDERED: Ondansetron INJ* 2 MG/ML VIAL IV PRN ×2 (15:40→16:14)
[2017-11-25] MEDS ORDERED: ValACYclovir (*) 1 GM TAB PO PRN (15:42)
[2017-11-25] MEDS ORDERED: Naloxone* 0.4 MG/ML 1 ML VIAL IV PRN (16:14)
[2017-11-25] MEDS ORDERED: HYDROmorphone INJ* 1 MG/ML CARPUJECT SYRINGE IV PRN (16:14)
[2017-11-25] MEDS ORDERED: DiMENhydriNATE IV* 50 MG/ML VIAL IV PUSH PRN (16:14)
[2017-11-25] MEDS ORDERED: oxyCODONE/Acetamin 5/325 MG* TAB ONE (17:57)
[2017-11-25] MEDS: oxyCODONE/Acetamin 5/325 MG* TAB PO PRN ×2 (18:01→22:36)
[2017-11-25] MEDS: fentaNYL* 50 MCG/ML 2 ML VIAL (100 MCG VIAL) IV PRN ×4 (18:02→18:13)
--- NOTE | 2017-11-25 18:12 | RAD ---
INDICATION: Right total knee arthroplasty COMPARISON: Most recent knee radiograph May 23, 2017 TECHNIQUE: 2 view radiograph of the right knee. FINDINGS: The recently installed right knee prosthesis is anatomically aligned in the AP and lateral projections. Expected postoperative findings are noted. IMPRESSION: Anatomic alignment of recently installed right knee prosthesis.
[2017-11-25] MEDS ORDERED: Magnesium Hydroxide LIQ* 30 ML UDC PO SCH (21:00)
[2017-11-25] MEDS: Magnesium Hydroxide LIQ* 30 ML UDC PO SCH (21:36)
[2017-11-25] MEDS: Docusate CAP* 100 MG PO SCH (21:36)
[2017-11-25] MEDS ORDERED: Warfarin TAB(*) 6 MG PO ONE (22:00)
[2017-11-25] MEDS: ceFAZolin 1 GM VIAL(*) 1 GM in NS 0.9% 50 ML* 50 ML IVPB SCH (22:36)
--- NOTE | 2017-11-25 22:51 | CONSULT ---
Consult Consult: PCP: Derek Ruiz MD Date/Time: 11/25/2017 8200 CC: POD zero R TKA HPI: Mr Park is a 72YO male HX HTN, HLD, AFIB, sick sinus syndrome s/p pacer , & SYMONE on CPaP who is POD zero from R TKA for OA failed conservative management. He is currently comfortable with pain well controlled and without complaints. PMedHx HTN HLD AFIB sick sinus syndrome s/p pacer SYMONE on CPAP BPH Ambulatory Orders Nursing to reconcile. Bioflavonoid Products [Vitamin C Plus 1000 mg] 1 tab PO BID 05/23/17 Misc Natural Products [Saw [place]] 1 cap PO BID 05/23/17 Wellness Essentials For W 1 tab PO BID 05/23/17 Aspirin [Aspirin 81 MG TAB] 1 tab PO QAM 11/12/17 Diltiazem XR EXTEND Releas(NF) [Cartia XR (NF)] 180 mg PO DAILY 11/12/17 ValACYclovir (*) [Valtrex 1 GM(*)] 1 gm PO TID PRN 11/12/17 Allergies Metoprolol [From Toprol XL] Allergy (Verified 11/25/17 11:47) Unknown Reaction Details PER H&P LATEX Allergy (Intermediate, Uncoded 11/25/17 11:47) Itching PT. STATES HAVING ITCHING AND DISCOMFORT WITH PLACEMENT OF [place] CATHETER. ALSO STATES IF IT WAS R/T CATH OR A GEL USED PRIOR TO CATH PLACEMENT PSurgHx tonsillectomy pacer placement R TKA 11/25/2017 SocHx: no tobacco, occasional alcohol, denies recreational drugs; lives with his ; full code status FamHx: positive for pancreatic CA & CAD ROS: as above, otherwise reviewed and all were negative vitals: Vital Signs Temp 37.0 C 11/25/17 21:46 Pulse 69 11/25/17 21:46 Resp 16 11/25/17 22:36 BP 122/61 11/25/17 21:46 Pulse Ox 96 11/25/17 21:46 Intake & Output 11/24/17 11/25/17 11/25/17 23:59 11:59 23:59 Intake Total 2830 Output Total 625 Balance 2205 Weight 97.159 kg Intake: IV Fluids 2150 LR 2100 NS 50ML, Cefazolin 2G 50 Oral 680 Output: Urine 50 Mcintosh 375 Estimated Blood Loss 200 Constitutional: NAD, normally developed, obese white male HEENM: atraumatic; sclera/conjunctiva: anicteric/clear; hearing: clinically intact; oropharynx: clear, mucosa moist Neck: soft tissue: non-tender; thyroid: normal Pulmonary: clear to auscultation bilaterally, good aeration, no accessory muscle use CV: RR/RR, normal S1S2, no carotid bruit, no jugular venous distention, 2+ B DP/ PT, no edema Abdominal: soft, non-distended, non-tender, no rebound/guarding/rigidity, normoactive bowel sounds, no hepatosplenomegaly or masses, no costovertebral angle tenderness Musculoskeletal: general: grossly intact, pain objectively & subjectively controlled Integumental: normal appearance and texture of exposed skin Psychiatric orientation: AA&O to PPS affect: calm mood: cooperative eye contact: good content: reliable responses: timely insight: good Testing: none ECG, personally reviewed: AFIB w/ intermittent pacing XRY R knee, personally reviewed: IMPRESSION: Anatomic alignment of recently installed right knee prosthesis. Impression: 72M POD zero elective R TKA for end-stage OA failed conservative management DIAGNOSIS & PLAN Primary POD zero elective R TKA : pain control : management per orthopedics Secondary HTN : continue diltiazem HLD : recommend heart healthy diet AFIB : continue diltiazem sick sinus syndrome s/p pacer : no acute issues SYMONE : recommend continuing home CPAP BPH : continue home meds
[2017-11-26] MEDS: ceFAZolin 1 GM VIAL(*) 1 GM in NS 0.9% 50 ML* 50 ML IVPB SCH ×2 (05:58→14:52)
[2017-11-26 06:33] LABS: Hematocrit 32 % (42-52); Hemoglobin 11.2 g/dl (14.0-18.0); Mean Platelet Volume 9 um3 (7.4-10.4); Platelet Count 206 10^3/ul (150-450)
[2017-11-26 06:46] LABS: INR 1.06 (0.77-1.02)
[2017-11-26 06:47] LABS: EGFR Non-African American 51.2 (>60)
[2017-11-26] MEDS: oxyCODONE/Acetamin 5/325 MG* TAB PO PRN ×2 (07:20→11:21)
[2017-11-26] MEDS: Diltiazem CD CAP* 180 MG PO SCH (08:17)
[2017-11-26] MEDS: Docusate CAP* 100 MG PO SCH ×2 (08:17→21:12)
[2017-11-26] MEDS: Magnesium Hydroxide LIQ* 30 ML UDC PO SCH ×2 (08:17→21:12)
--- NOTE | 2017-11-26 08:50 | PN ---
Progress Note - Progress Note Date of Service: 11/26/17 SOAP: Subjective: [] Patient seen at bedside. He feels well, denies RLE pain. No dizziness, CP, SOB, nausea or leg numbness. Objective: [] Vital Signs Temp 98.1 F 11/26/17 07:37 Pulse 86 11/26/17 07:37 Resp 17 11/26/17 08:00 BP 117/58 11/26/17 07:37 Pulse Ox 95 11/26/17 08:00 Intake & Output 11/25/17 11/26/17 11/26/17 18:59 06:59 18:59 Intake Total 2150 1960 680 Output Total 575 250 400 Balance 1575 1710 280 Weight 214 lb 3.2 oz Intake: IV Fluids 2150 980 LR 2100 980 NS 50ML, Cefazolin 2G 50 Oral 980 680 Output: Urine 250 400 Mcintosh 375 Estimated Blood Loss 200 Laboratory Last Values Hgb 11.2 g/dl (14.0-18.0) L 11/26/17 06:22 Hct 32 % (42-52) L 11/26/17 06:22 Plt Count 206 10^3/ul (150-450) 11/26/17 06:22 MPV 9 um3 (7.4-10.4) 11/26/17 06:22 INR (Anticoag Therapy) 1.06 (0.77-1.02) H 11/26/17 06:22 Sodium 134 mmol/L (133-145) 11/26/17 06:22 Potassium 4.1 mmol/L (3.5-5.0) 11/26/17 06:22 Chloride 99 mmol/L (101-111) L 11/26/17 06:22 Carbon Dioxide 26 mmol/L (22-32) 11/26/17 06:22 Anion Gap 9 mmol/L (2-11) 11/26/17 06:22 BUN 22 mg/dL (6-24) 11/26/17 06:22 Creatinine 1.36 mg/dL (0.67-1.17) H 11/26/17 06:22 Est GFR ( Amer) 65.9 (>60) 11/26/17 06:22 Est GFR (Non-Af Amer) 51.2 (>60) 11/26/17 06:22 BUN/Creatinine Ratio 16.2 (8-20) 11/26/17 06:22 Glucose 179 mg/dL (70-100) H 11/26/17 06:22 Calcium 8.5 mg/dL (8.6-10.3) L 11/26/17 06:22 General: Well appearing, NAD RLE: Drain pulled by Dr Mcdermott this morning without complication. Dressing CDI. Cryo unit in place. DF/PF intact. DP/PT 2+. Sensation intact distally. BL LE: Calves supple and nontender without erythema, edema or palpable cords. Assessment: []POD 1 s/p right total knee arthroplasty 11/25, Dr Mcdermott Plan: []WBAT PT/OT lovenox, coumadin 8 mg today
[2017-11-26] MEDS: Enoxaparin(*) 40 MG/0.4 ML SYR SUBCUT SCH (11:22)
--- NOTE | 2017-11-26 16:52 | PN ---
Subjective Date of Service: 11/26/17 Interval History: Patient complains of mild pain in right knee. Worse with movement. Able to work with PT. Patient denies CP, SOB, N/V, Patient has not had a BM and denies flatus but has no abdominal pain, denies dysuria and is urinating well. Denies FARNSWORTH, Changes in vision weakness, or other pain. Family History: Unchanged from Admission Social History: Unchanged from Admission Past Medical History: Unchanged from Admission Objective Active Medications: Acetaminophen (Tylenol Tab*) 650 mg PO Q4H PRN PRN Reason: PAIN OR TEMPERATURE Bisacodyl (Dulcolax Supp*) 10 mg [place] DAILY PRN PRN Reason: constipation Cyclobenzaprine HCl (Flexeril Tab*) 10 mg PO TID PRN PRN Reason: SPASMS Diltiazem HCl (Cardizem Cd Cap*) 180 mg PO DAILY [facility] Last Admin: 11/26/17 08:17 Dose: 180 mg Diphenhydramine HCl (Benadryl Iv*) 12.5 mg IV Q6H PRN PRN Reason: PRURITIS Docusate Sodium (Colace Cap*) 100 mg PO BID [facility] Last Admin: 11/26/17 08:17 Dose: 100 mg Enoxaparin Sodium (Lovenox(*)) 40 mg SUBCUT Q24H [facility] Last Admin: 11/26/17 11:22 Dose: 40 mg Lactated Ringer's (Lactated Ringers 1000 Ml Bag*) 1,000 mls @ 100 mls/hr IV PER RATE [facility] Lactulose (Lactulose*) 30 ml PO Q6H PRN PRN Reason: constipation Magnesium Hydroxide (Milk Of Magnesia Liq*) 30 ml PO BID [facility] Last Admin: 11/26/17 08:17 Dose: 30 ml Magnesium Hydroxide (Milk Of Magnesia Liq*) 30 ml PO Q6H PRN PRN Reason: constipation Ondansetron HCl (Zofran Inj*) 4 mg IV Q6H PRN PRN Reason: nausea Ondansetron HCl (Zofran Tab*) 4 mg PO Q6H PRN PRN Reason: NAUSEA Oxycodone HCl (Roxycodone Tab*) 10 mg PO Q4H PRN PRN Reason: SEVERE PAIN Oxycodone/Acetaminophen (Percocet 5/325 Tab*) 2 tab PO Q4H PRN PRN Reason: PAIN Last Admin: 11/26/17 11:21 Dose: 2 tab Oxycodone/Acetaminophen (Percocet 5/325 Tab*) 1 tab PO Q4H PRN PRN Reason: PAIN Pharmacy Profile Note (Coumadin Daily Reminder*) 1 note FOLLOW UP 1700 MEGAN Polyethylene Glycol/Electrolytes (Miralax*) 17 gm PO DAILY PRN PRN Reason: Constipation Valacyclovir HCl (Valtrex 1 Gm(*)) 1 gm PO TID PRN; Protocol PRN Reason: COLD SORE Warfarin Sodium (Coumadin Tab(*)) 8 mg PO DAILY@1700 MEGAN PRN Reason: Protocol Vital Signs - 8 hr 11/26/17 11/26/17 11/26/17 10:28 11:05 11:21 Temperature 97.5 F Pulse Rate 80 Respiratory 16 17 18 Rate Blood Pressure 124/58 (mmHg) O2 Sat by Pulse 96 Oximetry 11/26/17 11/26/17 14:52 15:23 Temperature 97.8 F Pulse Rate 67 Respiratory 18 18 Rate Blood Pressure 133/58 (mmHg) O2 Sat by Pulse 98 Oximetry Oxygen Devices in Use Now: None Appearance: Patient is a 72yo male who appears stated age and is sitting in the bed in [facility]. Eyes: No Scleral Icterus, PERRLA Ears/Nose/Mouth/Throat: NL Teeth, Lips, Gums, Clear Oropharnyx, Mucous Membranes Moist Neck: NL Appearance and Movements; NL JVP, Trachea Midline Respiratory: Symmetrical Chest Expansion and Respiratory Effort, Clear to Auscultation Cardiovascular: NL Sounds; No Murmurs; No JVD, No Edema, - - Irregularly irregular rhythm. Normal rate. Abdominal: NL Sounds; No Tenderness; No Distention, No Hepatosplenomegaly Lymphatic: No Cervical Adenopathy Extremities: No Edema, No Clubbing, Cyanosis, - - Pulses 2+ in B/L LE with strength WNL and symmetrical. Result Diagrams: 11/26/17 06:22 11/26/17 06:22 Assess/Plan/Problems-Billing Assessment: Patient is a 72yo male with a PMH significant for AFib, SSS with pacer placement , HLD, HTN, SYMONE, BPH who is POD #1 from LTKA and is doing very well. - Patient Problems (1) Post-operative state Current Visit: Yes Status: Acute Code(s): Z98.890 - OTHER SPECIFIED POSTPROCEDURAL STATES SNOMED Code(s): 85746268 Comment: POD#1. Pain well controlled, No BM or flatus but no abdominal pain and positive Bowel sounds. Mcintosh removed and urinating. H/H stable. (2) HTN (hypertension) Current Visit: Yes Status: Acute Code(s): I10 - ESSENTIAL (PRIMARY) HYPERTENSION SNOMED Code(s): 56834758 Comment: Normotensive, continue cardizem. (3) HLD (hyperlipidemia) Current Visit: Yes Status: Acute Code(s): E78.5 - HYPERLIPIDEMIA, UNSPECIFIED SNOMED Code(s): 46612591 Comment: On no home meds. (4) Afib Current Visit: Yes Status: Acute Code(s): I48.91 - UNSPECIFIED ATRIAL FIBRILLATION SNOMED Code(s): 53809935 Comment: Rate controlled. Pacer. Continue Cardizem. (5) SSS (sick sinus syndrome) Current Visit: Yes Status: Acute Code(s): I49.5 - SICK SINUS SYNDROME SNOMED Code(s): 87235876 Comment: Pacer. (6) Sleep apnea Current Visit: No Status: Active Code(s): G47.30 - SLEEP APNEA, UNSPECIFIED SNOMED Code(s): 55533536 Comment: Severe SYMONE, current CPAP user. (7) DVT prophylaxis Current Visit: Yes Status: Acute Code(s): ZDQ6684 - SNOMED Code(s): 528106495 Comment: Lovenox to Warfarin. (8) Full code status Current Visit: Yes Status: Acute Code(s): Z78.9 - OTHER SPECIFIED HEALTH STATUS SNOMED Code(s): 347195272 Status and Disposition: Patient is admitted inpatient. Plan for home at discharge. Disposition per primary team.
[2017-11-26] MEDS ORDERED: Warfarin TAB(*) 4 MG PO SCH (17:00)
--- NOTE | 2017-11-26 21:27 | OP ---
DATE OF OPERATION: 11/25/17 - ROOM #349 DATE OF : 41 SURGEON: Kelsie Mcdermott MD WHARF TENDER HELPER: ERICKA Hunter. Joann did help throughout the procedure with preparation of the leg, wound retraction, manipulation of the knee, and wound closure. ANESTHESIOLOGIST: Dr. Agrawal. ANESTHESIA: General with adductor nerve block. PRE-OP DIAGNOSIS: Right knee severe degenerative osteoarthritis. POST-OP DIAGNOSIS: Right knee severe degenerative osteoarthritis. OPERATIVE PROCEDURE: Right total knee arthroplasty. TOURNIQUET TIME: 46 minutes. COMPLICATIONS: None. ESTIMATED BLOOD LOSS: 400 cc. SPECIMEN: Bone and cartilage from the right knee joint sent to Pathology, synovitis from the right knee joint capsule sent to Pathology. HARDWARE USED: This is a cemented [employer]hew total knee arthroplasty hardware. Two packages of Simplex bone cement. For the femur, a right size 7 Legion femoral component. For the tibia, a right size 6 Libertad II tibial base plate. For the insert, a 9-mm posterior stabilized articular insert size 5/6, and for the patella a 35 mm 3-peg all-poly patella. BRIEF HISTORY/INDICATIONS: Mr. Park is a 72-year-old gentleman with years of increasingly severe right knee pain and swelling. Radiographs showed severe arthritis with [id number] contact. He failed conservative treatment with antiinflammatories, pain medication, intraarticular injection, and physical therapy. Due to continued pain and decreased quality of life, he elected to proceed with a right total knee arthroplasty. Informed consent was obtained from the patient. He understood the risks of surgery included, but were not limited to bleeding, infection, damage to nearby structures, continued pain, need for further surgery, intraoperative fracture, nerve palsy, hardware failure or loosening, knee stiffness, loss of motion, stroke, heart attack, blood clot, and . He wished to proceed. INTRAOPERATIVE FINDINGS: Intraoperatively, the patient was noted to have severe arthritis with complete loss of cartilage in all three compartments. He had extensive osteophyte formation. He had an enormous amount of beefy red synovitis with small nodular appearance in the gutters. This was sent to Pathology for further evaluation for either rheumatoid arthritis or PVNS. DESCRIPTION OF PROCEDURE: Mr. Park was identified in the preanesthesia unit. His right lower extremity was marked as the correct operative side. Informed consent was signed and placed in the chart. The patient was taken to the operating room and placed under general anesthesia and adductor nerve block was placed. A Mcintosh catheter was placed. Tourniquet was placed on the right thigh. The right lower extremity was prepped and draped in the usual sterile fashion. Preop time- out was made to correctly identify the patient, side and site. Appropriate preoperative antibiotics were given within 1 hour of incision. Tourniquet was inflated until the tourniquet time for this procedure was 46 minutes. A 14 cm midline incision was made with the 10 blade and carried down to the extensor mechanism. A new 10 blade used to make a standard medial parapatellar arthrotomy. The patella was subluxed laterally. Electrocautery was used to subperiosteally elevate soft tissue off the superomedial tibia to the mid sagittal plane. The medial osteophytes were removed from the medial tibial plateau. An enormous amount of synovitis with small nodular appearance in the gutters was noted. This was carefully excised with electrocautery and sent to Pathology. A large adhesion in the knee joint was suctioned and removed. The knee was copiously irrigated. The knee was flexed up. The anterior horn of the lateral meniscus and the ACL were sharply released. A drill was used to enter the distal femur. Intramedullary distal femoral cutting guide was pinned on the distal femur. A 9 mm of distal femoral bone was carefully removed with an oscillating saw. Next, the external rotation guide was pinned on the distal femur and the distal femur was sized to a size 7. Size 7 multi-cutting jig was pinned on the distal femur. The oscillating saw was used to make the appropriate 4 chamfer cuts. The PCL was completely released. The tibia was subluxed anteriorly. Extramedullary tibial cutting guide was pinned on the proximal tibia. The oscillating saw was used to make a proximal tibial cut perpendicular to the mechanical axis of the tibia. The bone was carefully removed. The knee was brought out into full extension. The knee had full extension with good fit of a spacer block. Medial and lateral ligaments were well balanced. The flexion and extension gaps were well balanced. The knee was flexed up. Lamina manager coding was placed both medially and laterally. Any remaining meniscus was carefully removed using electrocautery. Posterior osteophytes were removed with a curved osteotome. Tibial tray and drop domingo were placed. This confirmed once again a satisfactory tibial cut. A size 7 right femoral trial was impacted on to the femur and had good fit. The box of the posterior stabilized implant was prepared using a reamer and box-cut osteotome. Trial size 6 tibial tray with a 9-mm insert trial was placed and the knee was taken through range of motion. The knee had full extension to 130 degrees of flexion. Patellofemoral tracking was satisfactory. The patella was everted. A 9 mm of patellar bone and cartilage was carefully removed using an oscillating saw. The patella was sized to size 35. The 3 peg holes were drilled with a size 35 guide. A 35 trial patella was placed and the knee was taken through range of motion. There was satisfactory patellofemoral tracking. All trials were carefully removed. The tibia was subluxed anteriorly and sized to a size 6. Proximal tibia was prepared using a size 6 keel punch. All bony cut surfaces were copiously irrigated with sterile saline and dried. Final implants were cemented into place starting with the tibia followed by the femur , and lastly the patella. A 9-mm insert trial was placed while the knee was brought out into full extension. The tourniquet was turned down at 46 minutes. The knee was copiously irrigated with sterile saline. Electrocautery was used to maintain meticulous hemostasis. Once the cement had fully cured, the insert trial was removed. Any excess cement was removed from around the capsule and hardware. Final insert chosen was a 9-mm posterior stabilized articular insert size 5/6. This was locked into position on the tibial tray without difficulty. Stability of the insert was checked and rechecked and noted to be stable. The extensor mechanism was closed using interrupted #1 Vicryl over a medium Hemovac drain. The rest of the incision was closed in a layered fashion using 0 and 2-0 Vicryl. The skin was closed using running 3-0 nylon suture. Sterile, Xeroform, 4x4s, and Webril were placed over the incision. Joshua wrap and cold pack were placed over this. The patient's anesthesia was reversed without difficulty. He was taken to the PACU in stable condition. Intended weightbearing will be weightbearing as tolerated. Intended DVT prophylaxis will be Coumadin with a Lovenox bridge. [id number]/[facility] #: [id number] [facility] HOSPITALRonda
[2017-11-27] MEDS: oxyCODONE/Acetamin 5/325 MG* TAB PO PRN ×2 (00:01→08:29)
[2017-11-27 05:43] LABS: Hematocrit 29 % (42-52); Hemoglobin 9.8 g/dl (14.0-18.0); Mean Platelet Volume 9 um3 (7.4-10.4); Platelet Count 181 10^3/ul (150-450)
[2017-11-27 05:57] LABS: INR 1.33 (0.77-1.02)
[2017-11-27 05:59] LABS: EGFR Non-African American 58.1 (>60)
[2017-11-27] MEDS: Docusate CAP* 100 MG PO SCH (08:30)
[2017-11-27] MEDS: Diltiazem CD CAP* 180 MG PO SCH (08:30)
[2017-11-27] MEDS: Magnesium Hydroxide LIQ* 30 ML UDC PO SCH (08:31)
--- NOTE | 2017-11-27 08:32 | PN ---
Progress Note - Progress Note Date of Service: 11/27/17 SOAP: Subjective: []Patient seen at bedside. He feels well and would like to d/c today. Denies CP , SOB, leg numbness, nausea, vomiting. Objective: [] Vital Signs Temp 98.8 F 11/27/17 07:14 Pulse 77 11/27/17 07:14 Resp 18 11/27/17 08:29 BP 126/67 11/27/17 07:14 Pulse Ox 96 11/27/17 08:00 Intake & Output 11/26/17 11/27/17 11/27/17 18:59 06:59 18:59 Intake Total 2180 820 Output Total 1375 375 Balance 805 445 Intake: IV Fluids 565 LR 510 abx 55 IVPB 55 LR 55 Oral 1560 820 Output: Urine 1375 375 Laboratory Last Values Hgb 9.8 g/dl (14.0-18.0) L 11/27/17 05:26 Hct 29 % (42-52) L 11/27/17 05:26 Plt Count 181 10^3/ul (150-450) 11/27/17 05:26 MPV 9 um3 (7.4-10.4) 11/27/17 05:26 INR (Anticoag Therapy) 1.33 (0.77-1.02) H 11/27/17 05:26 Sodium 138 mmol/L (133-145) 11/27/17 05:26 Potassium 3.9 mmol/L (3.5-5.0) 11/27/17 05:26 Chloride 103 mmol/L (101-111) 11/27/17 05:26 Carbon Dioxide 30 mmol/L (22-32) 11/27/17 05:26 Anion Gap 5 mmol/L (2-11) 11/27/17 05:26 BUN 24 mg/dL (6-24) 11/27/17 05:26 Creatinine 1.22 mg/dL (0.67-1.17) H 11/27/17 05:26 Est GFR ( Amer) 74.7 (>60) 11/27/17 05:26 Est GFR (Non-Af Amer) 58.1 (>60) 11/27/17 05:26 BUN/Creatinine Ratio 19.7 (8-20) 11/27/17 05:26 Glucose 140 mg/dL (70-100) H 11/27/17 05:26 Calcium 8.3 mg/dL (8.6-10.3) L 11/27/17 05:26 General: Patient seen at bedside. NAD. RTK: Dressing changed by Dr Mcdermott this morning without complication. DF/PF intact. DP/PT pulses 2+. Sensation intact distally. BL LE: Calves supple and nontender without erythema, edema or palpable cords. Assessment: []POD 2 s/p right total knee arthroplasty 11/25, Dr Mcdermott Plan: []WBAT PT/OT lovenox, coumadin 6 mg today DC today
[2017-11-27] MEDS: Enoxaparin(*) 40 MG/0.4 ML SYR SUBCUT SCH (11:20)
[2017-11-27 11:43] VITALS: BP 129/60
[2017-11-27] MEDS ORDERED: Warfarin TAB(*) 6 MG PO SCH (17:00)
--- NOTE | 2017-11-28 00:58 | DS ---
DISCHARGE SUMMARY: DATE OF ADMISSION/SURGERY: 11/25/17 DATE OF DISCHARGE: 11/27/17 SURGEON: Kelsie Mcdermott MD * (DICTATED BY ERICKA BUTTERFIELD) WATCHGUARD: ERICKA Hunter PREOPERATIVE DIAGNOSIS: Right knee severe degenerative osteoarthritis. OPERATIVE PROCEDURE: Right total knee arthroplasty. HISTORY: Mr. Park is a 72-year-old gentleman with years of increasingly severe right knee pain and swelling. Radiographs showed severe arthritis with bone-on- bone contact. He failed conservative treatment, anti-inflammatories, pain medications, intraarticular injections, and physical therapy. Due to continued pain and decreased quality of life, he elected to proceed with right total knee arthroplasty. HOSPITAL COURSE: Mr. Park was admitted to [facility] on . He underwent a right total knee arthroplasty by Dr. Kelsie Mcdermott without complication. He was taken to the PACU in stable condition where he recovered briefly and then he was transferred to the short-stay surgical unit in stable condition as well. He was seen on postop day 0 for hospital consult due to a history of hypertension, hyperlipidemia, AFib, sick sinus syndrome, status post pacer, obstructive sleep apnea, on CPAP. Postop day 1, 11/26/17, hemoglobin was 11.2, hematocrit 32, INR 1.06. The patient was well appearing, in no acute distress. Drain was pulled by Dr. Mcdermott this morning without complications. His dressing was clean, dry, and intact. Dorsiflexion, plantar flexion intact. Dorsalis pedis and posterior tibial pulses were 2+. Sensation was intact distally. Calves were supple and nontender without erythema, edema, or palpable cords. Postop day 2, the patient was seen at bedside, in no acute distress. Dressing was changed by Dr. Mcdermott this morning without complication. The patient was deemed to be medically and orthopedically stable for discharge. DISCHARGE MEDICATIONS: 1. Vitamin C 1000 mg 1 tab p.o. b.i.d. 2. Wellness Essentials 1 tab p.o. b.i.d. 3. Saw palmetto 1 cap p.o. b.i.d. 4. Aspirin 81 mg p.o. q.a.m. 5. Diltiazem extended release 180 mg p.o. daily. 6. Valacyclovir 1 g p.o. t.i.d. p.r.n. 7. Acetaminophen 650 mg p.o. q.4 hours p.r.n., max daily dose of 4000. 8. Docusate 100 mg p.o. b.i.d. p.r.n. 9. Percocet 5/325 one to two tabs p.o. q.4 hours p.r.n., MDD 10. 10. Morphine 2 mg tablet 1 to 2 tabs to be taken depending on INR draws. DISCHARGE INSTRUCTIONS: Weightbearing as tolerated. Okay to shower. No bathing, swimming, or submerging wound. Call the orthopedic office for increased drainage, redness, increased pain or fever. Go to the emergency room with shortness of breath or chest pain. Coumadin dosing 6 mg 11/27/17, 2 mg daily thereafter, pain control with Percocet 5/325 mg 1 to 2 tabs by mouth every 4 to 6 hours as needed for pain. Home nurses will give wound checks and blood draws, INRs on Mondays and . Follow up with Dr. Mcdermott within 10 to 14 days. ERICKA BUTTERFIELD [id number]/[facility] #: [id number] SAHRA
== END 2017-11-27 14:00 | disposition home health service (06) | DRG 470 ==
LOC: AA 11-25 11:06 → SSU 11-25 19:52
PROVIDERS: ADMIT Orthopaedic Surgery Adult Reconstructive Orthopaedic Surgery; ATTEND Orthopaedic Surgery Adult Reconstructive Orthopaedic Surgery
PROC: 0SRC0J9 Replacement of Right Knee Joint with Synthetic Substitute, Cemented, Open Approach (ICD-10-PCS; principal; 2017-11-25 13:30)
DX: M17.11 Unilateral primary osteoarthritis, right knee (principal); I48.91 Unspecified atrial fibrillation; I10 Essential (primary) hypertension; G47.33 Obstructive sleep apnea (adult) (pediatric); M25.761 Osteophyte, right knee; E66.9 Obesity, unspecified; N40.0 Benign prostatic hyperplasia without lower urinary tract symptoms; E78.5 Hyperlipidemia, unspecified; Z95.0 Presence of cardiac pacemaker; Z88.8 Allergy status to other drugs, medicaments and biological substances; Z80.0 Family history of malignant neoplasm of digestive organs; Z82.49 Family history of ischemic heart disease and other diseases of the circulatory system; Z72.89 Other problems related to lifestyle; Z68.31 Body mass index [BMI] 31.0-31.9, adult; Z79.82 Long term (current) use of aspirin
CPT/HCPCS: 36415; 80048; 85014; 85018; 85049; 85610; A9270-GY; C1776; J0690; J1100; J1650; J2250; J2704; J3010

== ENCOUNTER 2017-06-02 14:28 | Emergency (ER) | payer MEDICARE, BC ==
[2017-06-02 15:06] VITALS: BP 161/91
--- NOTE | 2017-06-02 16:02 | UC ---
Skin Complaint HPI - HPI Summary HPI Summary: 72 y/o male present sto the urgent care c/o rash with blisters on his RT shoulder since last Friday05/31/2017. Pt reports rash is spreading to his chest today. It itches and a little bit painful at touch 2/10. Pt has not taking anything to alleviate symptoms. Pt denies fever,SOB, chest pain, N/V/D. Pt has not other complains. - History of Current Complaint Chief Complaint: UCSkin Time Seen by Provider: 06/02/17 16:00 Stated Complaint: SKIN Hx Obtained From: Patient Onset/Duration: Gradual Onset, Lasting Days, Still Present Skin Exposure Onset/Duration: Days Ago Timing: Constant Onset Severity: Mild Current Severity: Severe Pain Intensity: 2 Pain Scale Used: 0-10 Numeric Location: Other - RT shoulder and RT side of chest with rash Character: Swelling, Pain, Redness Aggravating: Nothing Alleviating: Nothing Associated Signs & Symptoms: Positive: Tenderness. Negative: Nausea, Vomiting, Numbness, Diaphoresis, Fever, Chills, Throat Tightening, Abdominal Pain, Drainage - Allergy/Home Medications Allergies/Adverse Reactions: Allergies Allergy/AdvReac Type Severity Reaction Status Date / Time LATEX Allergy Intermediate Itching Uncoded 06/02/17 14:54 Review of Systems Constitutional: Negative Skin: Rash - RT shoulder spreading to chest Eyes: Negative ENT: Negative Respiratory: Negative Cardiovascular: Negative Gastrointestinal: Negative Genitourinary: Negative Motor: Negative Neurovascular: Negative Musculoskeletal: Negative Neurological: Negative Psychological: Negative All Other Systems Reviewed And Are Negative: Yes PMH/Surg Hx/FS Hx/Imm Hx Previously Healthy: Yes Other Endocrine History: Osteoarthritis of the knees Cardiovascular History: Hypertension, Pacemaker/ICD - Surgical History Surgical History: Yes Surgery Procedure, Year, and Place: [place] [facility] [place] [facility] [place], [place] [facility] [place] w[place]bi[place] - Family History Known Family History: Positive: Cardiac Disease - Social History Alcohol Use: Daily Alcohol Amount: WINE NIGHTLY Substance Use Type: None Smoking Status (MU): Never Smoked Tobacco - Immunization History Most Recent Influenza Vaccination: never Most Recent Tetanus Shot: up to date Most Recent Pneumonia Vaccination: never Physical Exam Triage Information Reviewed: Yes Appearance: Well-Appearing, No Pain Distress, Well-Nourished, Obese Vital Signs: Initial Vital Signs Temp 98.4 F 07/24/17 14:57 Pulse 59 06/02/17 14:57 Resp 17 06/02/17 14:57 BP 161/91 06/02/17 14:57 Pulse Ox 98 06/02/17 14:57 Vital Signs Reviewed: Yes Eye Exam: Normal Eyes: Positive: Conjunctiva Clear - PERRLA, EOMI, fundi grossly normal ENT Exam: Normal ENT: Positive: Normal ENT inspection, Hearing grossly normal, Pharynx normal, TMs normal Dental Exam: Normal Neck exam: Normal Neck: Positive: Supple, Nontender, No Lymphadenopathy Respiratory Exam: Normal Respiratory: Positive: Chest non-tender, Lungs clear, Normal breath sounds Cardiovascular Exam: Normal Cardiovascular: Positive: RRR, No Murmur, Pulses Normal, Brisk Capillary Refill Abdominal Exam: Normal Abdomen Description: Positive: Nontender, No Organomegaly, Soft. Negative: CVA Tenderness (R), CVA Tenderness (L) Bowel Sounds: Positive: Present Musculoskeletal Exam: Normal Musculoskeletal: Positive: Strength Intact, ROM Intact, No Edema Neurological Exam: Normal Psychological Exam: Normal Skin: Positive: rashes - RT shoulder and RT side of the chest with erythematous maculopapular eruption w/ some clear vesicles spreading in a dermatomatone , mildly tender to palaption. Course/Dx - Course Course Of Treatment: 72 y/o male present sto the urgent care c/o rash with blisters on his RT shoulder since last Friday05/31/2017. Pt reports rash is spreading to his chest today. It itches and a little bit painful at touch 2/10. Pt has not taking anything to alleviate symptoms. Pt denies fever,SOB, chest pain, N/V/D. Pt has not other complains. Hx obtained. PE abnormal findings: RT shoulder and RT side of the chest with erythematous maculopapular eruption w / some clear vesicles spreading in a dermatone , mildly tender to palaption. Most likely Herpes Zoster. Pt Rx Valacyclovir 1000mg q8hrs x 7 days and caladryl lotion. Advised if symptoms do not improve despite medication to f/u with his PCP or return to the clinic for further evaluation and treatment. Pt understood and agreed. Left the clinic ambulating. BP: 161/91 Pt hasn't taking BP medication. Advised to decrease salt intake and monitor BP and f/u with his PCP for further management. - Differential Diagnoses - Skin Complaint Differential Diagnoses: Allergic Reaction, Cellulitis, Drug Rash, Poison Margie, Tick Born Illness, Varicella Zoster - Diagnoses Provider Diagnoses: 1- Herpes Zoster on the RT shoulder and RT side of chest Discharge - Discharge Plan Condition: Stable Disposition: HOME Prescriptions: Calamine/Pramoxine LOTION* [Caladryl LOTION*] 1 applic .SEE ORDER TID #1 btl ValACYclovir (*) [Valtrex 1 GM(*)] 1 gm PO TID #21 tab Patient Education Materials: Shingles (ED), Low Sodium Diet (ED) Referrals: Yosvany Ruiz DO [Primary Care Provider] - 1 Week Additional Instructions: For the rash please take medication as directed. if symptoms do not improve or worsen please f/u with your PCP of return to the urgent care for further evaluation and treatment. For your Uncontrolled HTN please take your BP medication a soon as you get home and decrease salt in your diet, monitor your BP and if it continues to be elevated please f/u with your PCP for further management.
== END 2017-06-02 16:33 | disposition home or self-care (01) ==
LOC: UCEAST 14:28
DX: B02.9 Zoster without complications (principal)
CPT/HCPCS: 99212; G0463

== ENCOUNTER 2018-04-21 08:31 | Observation (INO) | payer MEDICARE, BC ==
--- NOTE | 2018-04-01 14:31 | HP ---
HISTORY AND PHYSICAL: DATE OF SURGERY: 04/21/18 DATE OF HISTORY AND PHYSICAL: 03/27/18 SURGEON: Kelsie Mcdermott MD.* (DICTATED BY ERICKA CASTILLO) PROCEDURE: Left total knee arthroplasty. CHIEF COMPLAINT: Left knee pain. HISTORY OF PRESENT ILLNESS: Mr. Park is a 73-year-old gentleman with endstage osteoarthritis of the left knee. He has failed conservative management and is electing to proceed with a left total knee arthroplasty, which is scheduled for 04/21/[address] Mcdermott. He will continue to need medical clearance from Dr. Ruiz as well as cardiac clearance from Dr. Stewart prior to the procedure. He does endorse a history of significant hiccupping and feeling short of breath after anesthesia, most recently is considering a spinal lock. He denies any history of DVT or PE. PAST MEDICAL HISTORY: AFib, high cholesterol, hypertension, BPH, sick sinus syndrome, sleep apnea and he has an indwelling pacemaker. PAST SURGICAL HISTORY: Pacemaker placement, tonsillectomy, and right total knee replacement. MEDICATIONS: 1. Aspirin 81 mg daily. 2. Diltiazem 180 mg daily. 3. Saw palmetto twice daily. 4. Multivitamin. 5. Vitamin C. ALLERGIES: TOPROL. FAMILY HISTORY: Pancreatic cancer and heart disease. SOCIAL HISTORY: Mr. Park is 73-year-old gentleman who lives with his . He does not smoke or use drugs. He occasionally drinks alcohol. REVIEW OF SYSTEMS: A complete 14-point system review was conducted with the patient. He endorses back pain as well as his presenting complaint as outlined in the HPI otherwise this was negative and noncontributory. PHYSICAL EXAMINATION GENERAL: He is well nourished, well-developed, in no acute distress. Alert and oriented x3, ambulating with a slight antalgic gait favoring the left. VITAL SIGNS: Height 70 inches, weight 205 pounds, blood pressure 140/84, BMI 29.4. HEENT: Normocephalic atraumatic. Pupils equally round and reactive to light. Extraocular movements intact. NECK: His neck is supple. He has no palpable cervical lymph nodes. His thyroid is smooth and nontender. PULMONARY: Lungs are clear to auscultation bilaterally with no wheezes rales or rhonchi. CARDIAC: He has regular rate and rhythm. MUSCULOSKELETAL: Left lower extremity, the patient's skin is intact. He has moderate effusion, tenderness along the medial joint line. Range of motion is 10 to 120 degrees of flexion. He has no varus or valgus instability. He has 2 + DP pulse. His sensation is grossly intact to light touch distally. He has 5/ 5 lower extremity strength at the ankle and knee. ASSESSMENT AND PLAN: Mr. Park is a 73-year-old gentleman who complains of left knee pain secondary to endstage osteoarthritis. He has failed conservative management and he is elected to proceed with the left total knee arthroplasty, which is scheduled for 04/21/[address] Mcdermott discussed the risks and benefits of surgery at today's visit and all of his questions were answered. We will send Coumadin and Percocet to his pharmacy for post-operative pain control and DVT prophylaxis. He will follow up with Dr. Mcdermott in 2 weeks after his surgery. All questions were answered today. ERICKA CASTILLO [id number]/[facility] #: [id number] SAHRA
[~2018-04-21 08:31] MED LIST: Acetaminophen TAB* 325 MG PO ONE; Buffered Lidocaine 0.9% SYRIN* 5 ML/SYR SYRINGE INTRADERM ONE; Famotidine IV* 10 MG/ML 2 ML (20 mg) IV ONE; Gabapentin CAP(*) 300 MG PO ONE; celeCOXIB CAP* 200 MG PO ONE
[2018-04-21] MEDS ORDERED: Gabapentin CAP(*) 300 MG ONE (08:38)
[2018-04-21] MEDS ORDERED: celeCOXIB CAP* 100 MG ONE (08:38)
[2018-04-21] MEDS ORDERED: Famotidine IV* 10 MG/ML 2 ML (20 mg) ONE (08:38)
[2018-04-21] MEDS ORDERED: Acetaminophen TAB* 325 MG ONE (08:38)
[2018-04-21] MEDS ORDERED: ceFAZolin 2 GM PREMIX (*) 2 GM/50 ML BAG IVPB ONE (08:45)
[2018-04-21 09:08] LABS: INR 0.9 (0.77-1.02)
[2018-04-21] MEDS ORDERED: Bupivacaine 0.5% PF 10 ML VIAL INJ ONE ×2 (09:55→11:46)
[2018-04-21] MEDS ORDERED: Dexamethasone IV* 4 MG/ML 1 ML (4 MG) ONE (09:55)
[2018-04-21] MEDS ORDERED: Propofol* 10 MG/ML 20 ML BTL IV PUSH ONE (09:55)
[2018-04-21] MEDS ORDERED: Ondansetron ODT TAB* 4 MG ONE (09:55)
[2018-04-21] MEDS ORDERED: ROPIVACAINE 5 MG/ML 30 ML BTL (0.5%) ONE (09:55)
[2018-04-21] MEDS ORDERED: Lidocaine 2% PF * 5 ML VIAL ONE ×3 (09:55→12:09)
[2018-04-21] MEDS ORDERED: KETAMINE HCL* 50 MG/ML 10 ML VIAL ONE (09:56)
[2018-04-21] MEDS ORDERED: fentaNYL* 50 MCG/ML 2 ML VIAL (100 MCG VIAL) ONE (09:56)
[2018-04-21] MEDS ORDERED: Midazolam* 1 MG/ML 10 ML VIAL (10 MG) ONE (09:56)
[2018-04-21] MEDS ORDERED: Bupivacaine 0.25% SDV* 30 ML ONE (11:59)
[2018-04-21] MEDS ORDERED: Propofol* 500 MG/50 ML BTL ONE (12:09)
[2018-04-21] MEDS ORDERED: Naloxone* 0.4 MG/ML 1 ML VIAL IV PRN (13:22)
[2018-04-21] MEDS ORDERED: fentaNYL* 50 MCG/ML 2 ML VIAL (100 MCG VIAL) IV PRN (13:22)
[2018-04-21] MEDS ORDERED: HYDROmorphone INJ* 1 MG/ML CARPUJECT SYRINGE IV PRN (13:22)
[2018-04-21] MEDS ORDERED: Ondansetron ODT TAB* 4 MG PO PRN (13:22)
[2018-04-21] MEDS ORDERED: diPHENhydraMINE IV* 50 MG/ML 1 ml VIAL (BENADRYL) IV PRN (14:11)
[2018-04-21] MEDS ORDERED: Magnesium Hydroxide LIQ* 30 ML UDC PO PRN (14:11)
[2018-04-21] MEDS ORDERED: Morphine VIAL* 4 MG/ML VIAL (1 ml vial) IV PRN (14:11)
[2018-04-21] MEDS ORDERED: oxyCODONE/Acetamin 5/325 MG* TAB PO PRN (14:11)
[2018-04-21] MEDS ORDERED: Bisacodyl SUPP* 10 MG SUPP PR PRN (14:11)
[2018-04-21] MEDS ORDERED: Polyethylene Glycol 3350* 17 GM PACKET PO PRN (14:11)
[2018-04-21] MEDS ORDERED: Ondansetron INJ* 2 MG/ML VIAL IV PRN (14:11)
[2018-04-21] MEDS ORDERED: Ondansetron TAB* 4 MG PO PRN (14:11)
[2018-04-21] MEDS ORDERED: Cyclobenzaprine TAB* 10 MG PO PRN (14:11)
[2018-04-21] MEDS ORDERED: Acetaminophen TAB* 325 MG PO PRN (14:11)
--- NOTE | 2018-04-21 14:48 | RAD ---
Indication: Postop LEFT total knee replacement. Comparison: February 20, 2018 Technique: Portable AP and cross table lateral views LEFT knee. Report: Status post total knee replacement. Post-op fluid and gas is seen in the joint space and anterior subcutaneous tissues. Alignment is anatomic. No periprosthetic fracture evident. IMPRESSION: Unremarkable immediate postoperative appearance following LEFT knee replacement.
[2018-04-21] MEDS ORDERED: Warfarin TAB(*) 6 MG PO ONE (17:00)
[2018-04-21] MEDS ORDERED: Diltiazem XR EXTEND Releas(NF) 240 MG CAP PO SCH (18:00)
[2018-04-21] MEDS: ceFAZolin 1 GM in Dextrose (*) 1 GM/50 ML BAG IVPB SCH (19:44)
[2018-04-21] MEDS: Docusate CAP* 100 MG PO SCH (19:47)
[2018-04-21] MEDS: Magnesium Hydroxide LIQ* 30 ML UDC PO SCH (19:48)
[2018-04-21] MEDS: Diltiazem CD CAP* 180 MG PO SCH (19:48)
[2018-04-21] MEDS: oxyCODONE/Acetamin 5/325 MG* TAB PO PRN (19:48)
[2018-04-21] MEDS: oxyCODONE TAB* 5 MG TAB PO PRN (22:16)
--- NOTE | 2018-04-21 22:24 | CONS ---
CC: Dr. Ruiz * HOSPITAL MEDICINE CONSULTATION REPORT: DATE OF CONSULT: 04/21/18 PRIMARY CARE PHYSICIAN: Dr. Ruiz. ATTENDING PHYSICIAN: Dr. Mcdermott. CONSULTING PHYSICIAN: Dr. Rayna Ibanez (dictation provided by Vaishnavi Sanon NP ) REASON FOR CONSULT: Medical co-management in a patient admitted for a left total knee arthroplasty. HISTORY OF PRESENT ILLNESS: Mr. Park is a 73-year-old male with a past medical history of atrial fibrillation, sick sinus syndrome with pacemaker placement and hypertension, who presents to the hospital today for a planned left total knee arthroplasty. Please see the dictated H and P from Dr. Mcdermott's team for complete details. In brief, the patient had ongoing pain in his left knee despite conservative treatment and had opted for a surgical intervention. The patient also has a history of a right total knee replacement with Dr. Mcdermott in November of 2017, which he tolerated well and had "exceeded his expectations. " The patient states that prior to coming in for surgery today, he has had no complaints other than his ongoing left knee pain. He denies any chest pain, shortness of breath, nausea, vomiting, diarrhea, abdominal pain. PAST MEDICAL HISTORY: 1. Atrial fibrillation. 2. Sick sinus syndrome. 3. Hyperlipidemia. 4. Hypertension. 5. BPH. 6. History of obstructive sleep apnea with CPAP usage. PAST SURGICAL HISTORY: 1. Permanent pacemaker placement. 2. Tonsillectomy. 3. Right total knee replacement in November of 2017. MEDICATIONS: 1. Aspirin 81 mg p.o. daily. 2. Tylenol p.r.n. 3. Ascorbic acid 1000 mg p.o. b.i.d. 4. Saw palmetto fruit 450 mg p.o. b.i.d. 5. Valacyclovir 1 g p.o. t.i.d. p.r.n. 6. Wellness Essentials 1 tab p.o. b.i.d. 7. Diltiazem XR 180 mg p.o. q.p.m. ALLERGIES: LATEX, NATURAL RUBBER and METOPROLOL. FAMILY HISTORY: The patient states that his father around age 63 from pancreatic cancer and his mother at 93 related to heart failure. SOCIAL HISTORY: The patient denies any alcohol, tobacco or drug use. He lives with his and states that she would be the health care proxy. REVIEW OF SYSTEMS: A 14-point review of systems was completed with Mr. Park and all those not mentioned above were negative. PHYSICAL EXAM: Vital Signs: Temperature 96.8, heart rate 60, respiratory rate 16, O2 saturation 98% on 2 L nasal cannula, blood pressure 136/78. General: Mr. Park is lying in the bed with his at the bedside in the PACU. He is in no acute distress. Neuro: He is alert. He is oriented x3. He moves all extremities equally. There is no facial asymmetry or focal weakness. Extraocular movements are intact. Heart: S1, S2. No murmur, rub or gallop and regular. Lungs: Clear to auscultation bilaterally with no accessory muscle use and good aeration. The abdomen is soft, nontender with bowel sounds positive x4. Extremities: No cyanosis or edema. Skin is intact other than the incision site, which was not examined in the immediate postoperative period. DIAGNOSTIC STUDIES/LAB DATA: The patient's labs were last drawn on 04/13/18. At that time, his white blood cell count was 7.8, hemoglobin 14.1, hematocrit 42 , platelet count 241. Sodium 141, potassium 4.1, chloride 104, serum bicarbonate 31, BUN 18, creatinine 1.14, glucose 92. ASSESSMENT: Mr. Park is a 73-year-old male with past medical history of atrial fibrillation with sick sinus syndrome and pacemaker placement as well as hypertension, hyperlipidemia and obstructive sleep apnea with home CPAP use, who presented to the hospital today for a planned elective left total knee arthroplasty. Our recommendations are as follows: 1. Left total knee arthroplasty. The patient will continue to be followed by orthopedic services. He will have pain medications p.r.n. with bowel regimen. He will be followed by Physical and Occupational Therapy. We will monitor H and H closely. 2. Atrial fibrillation. The patient is rate controlled and does have a history of pacemaker placement. We will continue his home diltiazem, but we are holding aspirin as he will be on DVT prophylaxis per Orthopedics. 3. Hypertension. Continue diltiazem. 4. Hyperlipidemia. The patient is not on any statin medication or other prescription medication for hyperlipidemia. 5. Obstructive sleep apnea. Continue CPAP. 6. DVT prophylaxis with Lovenox and warfarin. 7. Code status is full code. TIME SPENT: Approximately 45 minutes were spent on the admission of this patient, more than half the time spent with the patient and his at the bedside reviewing the events leading up to this hospitalization, performing the physical examination and reviewing my plan of care. VAISHNAVI SANON NP [id number]/[facility] #: [id number] SAHRA
[2018-04-22] MEDS: ceFAZolin 1 GM in Dextrose (*) 1 GM/50 ML BAG IVPB SCH ×2 (04:09→12:02)
[2018-04-22] MEDS: oxyCODONE/Acetamin 5/325 MG* TAB PO PRN ×3 (04:12→17:35)
[2018-04-22 06:34] LABS: Hematocrit 33 % (42-52); Hemoglobin 11.3 g/dl (14.0-18.0); Mean Platelet Volume 9.2 um3 (7.4-10.4); Platelet Count 218 10^3/ul (150-450)
[2018-04-22 06:38] LABS: INR 1.05 (0.77-1.02)
[2018-04-22 06:55] LABS: EGFR Non-African American 59.6 (>60)
[2018-04-22] MEDS: oxyCODONE TAB* 5 MG TAB PO PRN (07:40)
[2018-04-22] MEDS: Magnesium Hydroxide LIQ* 30 ML UDC PO SCH (08:44)
[2018-04-22] MEDS: Docusate CAP* 100 MG PO SCH (08:44)
--- NOTE | 2018-04-22 10:47 | PN ---
Progress Note - Progress Note Date of Service: 04/22/18 SOAP: Subjective: [Pt is a 73 y/o male who is now POD 1 LTKA. The pt was seen sitting up in the chair today. He states that he is doing okay. Pain is being controlled. His expressed concern for possible discharge today stating that he seems a little more "worn out" compared to the last total arthroplasty that he underwent. The pt denies any numbness or tingling, he denies any SOB or Chest pain. ] Objective: [General: Pt is alert, awake and oriented. NAD MSK, LLE: Dressing is clean, dry and intact. There is some mild pitting edema about the ankle. Calf is soft and non tender. Sensation is intact to light touch distally. PT and DP pulses are 2+. ] Vital Signs Temp 98.1 F 04/22/18 07:07 Pulse 72 04/22/18 07:07 Resp 20 04/22/18 09:42 BP 146/63 04/22/18 07:07 Pulse Ox 94 04/22/18 08:00 Intake & Output 04/21/18 04/22/18 04/22/18 18:59 06:59 18:59 Intake Total 2800 1900 Output Total 2400 755 150 Balance 400 1145 -150 Weight 220 lb Intake: IV Fluids 1800 927 LR 1800 927 IVPB 113 ABX - CEFAZOLIN 113 Oral 1000 860 Output: Urine 150 Mcintosh 2150 755 Estimated Blood Loss 250 Assessment: [POD 1 LTKA] Plan: [- PT/OT today - Possible DC today if the pt should meet all requirements after PT this afternoon - Will change dressing should we DC the pt - INR was 1.05 this am, 8 mg of warfarin tonight. - Hospitalists co-managing - Continue current pain medication ]
[2018-04-22] MEDS ORDERED: Enoxaparin(*) 40 MG/0.4 ML SYR SUBCUT SCH (12:00)
--- NOTE | 2018-04-22 12:31 | OP ---
DATE OF OPERATION: 04/21/18 - ROOM #343 DATE OF : 41 ATTENDING SURGEON: Kelsie Mcdermott MD. SHOTBLAST EQUIPMENT OPERATOR: ERICKA Quintero. Ms. Spann did help throughout the procedure with preparation of the leg, wound retraction, manipulation of the knee, and wound closure. ANESTHESIOLOGIST: Dr. Li. ANESTHESIA: Spinal. PRE-OP DIAGNOSIS: Severe endstage degenerative osteoarthritis of the left knee joint. POST-OP DIAGNOSIS: Severe endstage degenerative osteoarthritis of the left knee joint. OPERATIVE PROCEDURE: Left total knee arthroplasty. TOURNIQUET TIME: 49 minutes. COMPLICATIONS: None. ESTIMATED BLOOD LOSS: 200 cc. HARDWARE USED: This is [employer] cemented total knee arthroplasty hardware. For the femur, a size 7 left posterior stabilized Legion femoral component. For the tibia, a size 6 left Libertad II tibial base plate. For the insert, a 9-mm posterior stabilized articular insert size 5/6. For the patella, a 35-mm 3 -peg all poly patella. BRIEF HISTORY/INDICATION: Mr. Park is a 73-year-old gentleman with years of increasingly severe left knee pain. He failed conservative treatment with anti - inflammatories, pain medication, intraarticular injections, and physical therapy. Due to continued pain and decreased quality of life, he elected to undergo left total knee arthroplasty. Informed consent was obtained from the patient. He understood the risks of surgery included but were not limited to bleeding, infection, damage to nearby structures, continued pain, need for further surgery, intraoperative fracture, nerve palsy, hardware failure or loosening, knee stiffness, loss of motion, stroke, heart attack, blood clot, and . He wished to proceed. INTRAOPERATIVE FINDINGS: Intraoperatively, the patient was noted to have severe endstage loss of cartilage, which was along the entire weightbearing portion of the medial and patellofemoral compartments. He had extensive osteophyte formation. He was also noted to have hyperemic and abundant inflamed synovium with a large amount of joint fluid. DESCRIPTION OF PROCEDURE: Mr. Park was identified in the preanesthesia unit. His left lower extremity was marked as the correct operative side. Informed consent was signed and placed in the chart. The patient was taken to the operating room and placed under spinal anesthesia. A Mcintosh catheter was placed. Tourniquet was placed on the left thigh. Left lower extremity was prepped and draped in the usual sterile fashion. Preop time-out was made to correctly identify the patient's side and site. Appropriate perioperative antibiotics were given within 1 hour of incision. Tourniquet was inflated and tourniquet time for this procedure was 49 minutes. A midline incision was made with a 10 blade and carried down to the extensor mechanism. A new 10 blade was used to make a standard medial parapatellar arthrotomy. The patella was subluxed laterally. Electrocautery was used to subperiosteally elevate the soft tissue off the superomedial tibia to the mid sagittal plane. The knee was flexed up. The anterior horn of the lateral meniscus and ACL were sharply released. A drill was used to enter the distal femur. Intramedullary distal femoral cutting guide was pinned on the distal femur. Oscillating saw was used to make the appropriate distal femoral cut of 9 mm. Next, the external rotation guide was pinned on the distal femur. Distal femur was sized to a size 7. Size 7 multi-cutting jig was pinned on the distal femur. Oscillating saw was used to make the appropriate 4 chamfer cuts. The PCL was completely released and the tibia was subluxed anteriorly. Extramedullary tibial cutting guide was pinned on the proximal tibia. Oscillating saw was used to make the appropriate proximal tibial cut perpendicular to the mechanical axis of the tibia. The bone was carefully removed. The knee was brought out into full extension. Spacer block had excellent fit with the knee in extension. Medial and lateral ligaments were well balanced. Flexion and extension gaps were well balanced. The knee was flexed up. Lamina case managers was placed both medially and laterally. Any remaining meniscus was carefully removed using electrocautery. Curved osteotome was used to remove any remaining osteophytes from the posterior condyles. A tibial tray and drop domingo were placed and once again confirmed a satisfactory tibial cut. A size 7 left femoral trial was impacted onto the distal femur and had excellent fit. The box for the posterior stabilized implant was prepared using a reamer and box cut osteotome. A size 6 tibial tray trial with a 9-mm insert trial was placed, and the knee was taken through a range of motion. The knee had full extension to 130 degrees of flexion with satisfactory patellofemoral tracking. The patella was everted. 9 mm of patellar bone and cartilage were carefully removed using an oscillating saw. The patella was sized to a size 35. Three peg holes were drilled through the size 35 guide. A 35 trial patella was placed and the knee was taken through a range of motion. The knee had satisfactory patellofemoral tracking. All trials were carefully removed. The tibia was subluxed anteriorly and sized to a size 6. Proximal tibia was prepared using a size 6 keel punch. All bony cut surfaces were copiously irrigated with sterile saline and dried. Final implants were cemented into place starting with the tibia, followed by the femur and last, the patella. A 9-mm insert trial was placed while the knee was brought out into full extension. Tourniquet was turned down at 49 minutes. The knee was copiously irrigated with sterile saline and electrocautery was used to obtain meticulous hemostasis. Once the cement had fully cured, the insert trial was removed. Any excess cement was removed from around the capsule and hardware. Final implant chosen was a 9-mm posterior stabilized articular insert, size 5/6. This was locked into position on the tibial tray without difficulty. Stability of the insert was checked and rechecked and noted to be stable. The knee was copiously irrigated with sterile saline. The extensor mechanism was closed using interrupted #1 Vicryls. The rest of the incision was closed in a layered fashion using 0 and 2-0 Vicryls. Skin was closed using running 3- 0 nylon suture. Sterile Xeroform, 4x4s, and Webril were used to cover the incision. Joshua wrap and cold pack were placed over this. The patient's anesthesia was reversed without difficulty. He was taken to the PACU in stable condition. Intended weightbearing will be weightbearing as tolerated. Intended DVT prophylaxis will be Coumadin with a Lovenox bridge. [id number]/[facility] #: [id number] [facility]ENT[facility]onda
[2018-04-22] MEDS: Diltiazem CD CAP* 180 MG PO SCH (17:35)
[2018-04-22 18:00] VITALS: BP 138/60
--- NOTE | 2018-04-24 11:07 | DS ---
AMENDED REPORT NOW INCLUDES COSIGNER DESIGNATION - ESIGNED BEFORE ADJUSTMENT DATE OF ADMISSION: 04/21/2018. DATE OF DISCHARGE: 04/22/2018. ATTENDING PHYSICIAN: Dr. Kelsie Mcdermott * (ERICKA Martinez). ADMITTING DIAGNOSIS: Left total knee arthroplasty. CONSULTATIONS: Physical Therapy, Occupational Therapy, and Hospitalist Medicine. HISTORY OF PRESENT ILLNESS: Mr. Park is a 73-year-old gentleman with end- stage osteoarthritis of the left knee. He has failed conservative management and elected to proceed with a left total knee arthroplasty which was performed on 04/21/[address] Kelsie Mcdermott. HOSPITAL COURSE: The patient was admitted to [facility] on 2017 and underwent a left total knee arthroplasty with no complications. The patient recovered briefly in the Postanesthesia Care Unit and was transferred to the Short Stay Surgical Unit in stable condition. On postop day number one, the patient's H and H was 11. and 33. INR was 1.05 after 6 mg of Coumadin the night before. He was neurovascularly intact. Dressing was clean, dry, and intact. He could demonstrate dorsiflexion and plantarflexion with good strength. The patient was able to get out of bed with physical. Pain was well- controlled with oral pain medication. Throughout the hospital course, the vital signs remained stable and the patient was afebrile. DISCHARGE CONDITION: Good. DISCHARGE MEDICATIONS: 1. Percocet 5/325. 2. Warfarin Sodium 2 mg. 3. Colace 100 mg. HOME MEDICATIONS: 1. Aspirin 81 mg, hold. 2. Diltiazem 180 mg daily. 3. Saw Stuart twice daily. 4. Multivitamin. 5. Vitamin C. DISCHARGE INSTRUCTIONS: 1. Weightbearing as tolerated. 2. Wound care: Okay to shower on postop day number three. No bathing , swimming, or submerging of the wound. Use gentle soap and pat dry. Cover with gauze, DUSTY wrap, or tape. Call Orthopedic office for increased drainage, redness, increased pain or fever. Go to the ER with shortness of breath or chest pain. 3. Diet: Regular diet. Increase fluids or fiber to prevent constipation. Continue to use stool softeners. Call the office if no bowel motion within 48 hours. 4. Continue physical therapy and occupational therapy exercises as shown. 5. Visiting home nurses to do wound checks. 6. Visiting home nurses to drawn blood work for INR on Mondays and and assign Coumadin dosing. Please note that you have been given 2 mm tablets. Please kennedy the dosing instructions on your calendar as they are provided to you. Dosin mg tonight. Recheck tomorrow. 7. Pain control with Percocet 5/325 one to two tabs by mouth every four to six hours as needed for pain, maximum of ten tabs per day. Please note that Percocet contains Tylenol/acetaminophen. Maximum daily dose of Tylenol is 4, 000 from all sources. 8. Antibiotics required for any dental work. 9. Follow-up with Dr. Kelsie Mcdermott in 10 to 14 days. Call for an appointment. ERICKA BROUSSARD [id number]/[facility] #: [id number] SAHRA
== END 2018-04-22 18:07 | disposition home or self-care (01) ==
LOC: OR 08:31 → SSU 14:11
PROVIDERS: ADMIT Orthopaedic Surgery Adult Reconstructive Orthopaedic Surgery; ATTEND Orthopaedic Surgery Adult Reconstructive Orthopaedic Surgery
PROC: 0SRD0JZ Replacement of Left Knee Joint with Synthetic Substitute, Open Approach (ICD-10-PCS; principal; 2018-04-21 11:00)
DX: M17.12 Unilateral primary osteoarthritis, left knee (principal); M25.562 Pain in left knee; Z79.82 Long term (current) use of aspirin; Z91.040 Latex allergy status; Z95.0 Presence of cardiac pacemaker; Z87.798 Personal history of other (corrected) congenital malformations; N40.0 Benign prostatic hyperplasia without lower urinary tract symptoms; E78.5 Hyperlipidemia, unspecified; G47.33 Obstructive sleep apnea (adult) (pediatric); I48.91 Unspecified atrial fibrillation; Z79.01 Long term (current) use of anticoagulants; I10 Essential (primary) hypertension
CPT/HCPCS: 36415; 80048; 85014; 85018; 85049; 85610; 86850; 86900; 86901; 88305; 88311; A9270-GY; C1776; G0378; G8978-GP-CJ; G8979-GP-CI; G8987-GO-CJ; G8988-GO-CI; G8989-GO-CI; J0690; J1100; J1650; J2250; J2704; J2795; J3010

== ENCOUNTER 2018-04-24 07:45 | Emergency (ER) | payer MEDICARE, BC ==
[2018-04-24 08:11] LABS: ABS Basophils 0.1 10^3/ul (0-0.2); ABS Eosinophils 0.2 10^3/ul (0-0.6); ABS Lymphocytes 1.7 10^3/ul (1.0-4.8); ABS Monocytes 1.2 10^3/ul (0-0.8); ABS Neutrophils 8.3 10^3/ul (1.5-7.7); ABS Nucleated RBC 0 10^3/ul; Eosinophil % 1.5 % (0-6); Hematocrit 31 % (42-52); Hemoglobin 10.5 g/dl (14.0-18.0); Lymphocyte % 14.7 % (25-47); Mean Corpuscular HGB Conc 34 g/dl (31-36); Mean Corpuscular Hemoglobin 30 pg (27-31); Mean Corpuscular Volume 88 fL (80-94); Mean Platelet Volume 8.7 um3 (7.4-10.4); Nucleated Red Blood Cells % 0; Platelet Count 200 10^3/ul (150-450); Red Cell Distribution Width 14 % (10.5-15); White Blood Count 11.4 10^3/ul (3.5-10.8)
[2018-04-24 08:17] LABS: INR 1.48 (0.77-1.02)
[2018-04-24 08:28] LABS: EGFR Non-African American 64.6 (>60)
--- NOTE | 2018-04-24 10:16 | RAD ---
HISTORY: LLE post op swelling COMPARISONS: None relevant TECHNIQUE: Multiple transverse and longitudinal ultrasound images were obtained of the left lower extremity from the level of the common femoral vein inferiorly through to the infrapopliteal veins using grayscale, color Doppler, and spectral Doppler imaging with and without compression and with augmentation. Comparison images were obtained of the contralateral common femoral vein. FINDINGS: VEINS: The venous system of the left lower extremity is compressible throughout its course, with normal flow on color Doppler imaging and normal response to augmentation on spectral Doppler imaging. SOFT TISSUES: There is a complex fluid collection within the popliteal fossa measuring 7.6 x 2.3 x 2.7 cm. OTHER FINDINGS: None. IMPRESSION: 1. NO LEFT LOWER EXTREMITY DEEP VEIN THROMBOSIS. 2. COMPLEX FLUID COLLECTION WITHIN POPLITEAL FOSSA MEASURING 7.6 IMAGES IN MAXIMUM DIMENSION. THIS MAY BE POSTSURGICAL OR A COMPLEX TAVERA'S CYST.
--- NOTE | 2018-04-24 10:49 | CONSULT ---
Consult Consult: HPI- 73 y/o male s/p L TKA by Dr. Mcdermott 04/21/2018 presents for new onset left leg swelling, redness. Patient and state patient was doing well yesterday, minimal swelling, worked with physical therapy well but had a tough session. Patient woke up this AM with increased leg swelling from knee down to ankle with mild redness over area, improved since coming to ER. No increased pain with walking, movement, states continues to have good range of motion. Patient is on coumadin for DVT prophylaxis post-operatively. Denies chest pain , shortness of breath, decreased breathing, lightheadedness. + hiccups, whiich occur intermittently which are a common side effect for the patient while taking narcotics. - Please see recent discharge for PMH, PSH PHYSICAL EXAM; General= Well appearing, NAD AO, resting in bed comfortably. MSK- L leg with incisino over L knee, C/I, minimal area of serousang drainage from sutrue site. Sutures intact. + Df/PF, negative homans sign, PT, DP 2+, + 1 pitting edema L lower ankle SITLT. no erythema noted, area of old discoloration, orange, over posterior knee, likely from surgery prep. Vital Signs Temp 99.6 F 04/24/18 12:12 Pulse 63 04/24/18 12:12 Resp 16 04/24/18 12:12 BP 171/77 04/24/18 12:12 Pulse Ox 94 04/24/18 12:12 Intake & Output 04/23/18 04/24/18 04/24/18 18:59 06:59 18:59 Weight 113.398 kg Laboratory Results - last 24 hr 04/24/18 04/24/18 04/24/18 08:03 08:03 08:03 WBC 11.4 H RBC 3.50 L Hgb 10.5 L Hct 31 L MCV 88 MCH 30 MCHC 34 RDW 14 Plt Count 200 MPV 8.7 Neut % (Auto) 72.7 Lymph % (Auto) 14.7 L Murray % (Auto) 10.5 H Eos % (Auto) 1.5 Baso % (Auto) 0.6 Absolute Neuts (auto) 8.3 H Absolute Lymphs (auto) 1.7 Absolute Monos (auto) 1.2 H Absolute Eos (auto) 0.2 Absolute Basos (auto) 0.1 Absolute Nucleated RBC 0 Nucleated RBC % 0 INR (Anticoag Therapy) 1.48 H Sodium 138 Potassium 3.6 Chloride 104 Carbon Dioxide 28 Anion Gap 6 BUN 18 Creatinine 1.11 Est GFR ( Amer) 83.1 Est GFR (Non-Af Amer) 64.6 BUN/Creatinine Ratio 16.2 Glucose 101 H Calcium 8.5 L PLAN- - DVT doppler- negative - Continue coumadin as directed - Follow up with Dr. Mcdermott as directed. Patient discussed with Dr. Mcdermott who agrees with plan - Patient educated to ice frequently, elevate foot higher than heart, continue PT, keep leg extended. - No antibiotics currently as no sign of infection noted. - Call office with any questions over the weekend- [phone]
--- NOTE | 2018-04-24 10:56 | ED ---
Sagar Forbes Stephanie, scribed for Micheal Landeros MD on 04/24/18 at 0759 . Lower Extremity - HPI Summary HPI Summary: The pt is a 73 y/o M presenting to the ED with c/o L knee pain that began this morning. Symptoms include L knee erythema and swelling. The pt has a L knee replacement on 04/21/[address] Mcdermott. The pt is on warfarin. - History of Current Complaint Stated Complaint: POST SURGICAL LT KNEE PAIN Time Seen by Provider: 04/24/18 07:47 Hx Obtained From: Patient Onset of Pain: Hours Onset/Duration: Still Present Severity Currently: Mild Timing: Constant Location: Is Discrete @ - L knee Associated Signs And Symptoms: Positive: Swelling, Redness Aggravating Factor(s): Nothing Alleviating Factor(s): Nothing - Allergies/Home Medications Allergies/Adverse Reactions: Allergies Allergy/AdvReac Type Severity Reaction Status Date / Time Latex, Natural Rubber Allergy Intermediate See Comment Verified 04/24/18 07:58 metoprolol [From Toprol XL] Allergy See Comment Verified 04/24/18 07:58 Home Medications: Home Medications Warfarin Sodium [Warfarin Sodium] 4 - 8 mg PO DAILY 04/24/18 [History Confirmed 04/24/18] oxyCODONE/Acetamin 5/325 MG* [Percocet 5/325 TAB*] 1 - 2 tab PO Q4HR PRN [History Confirmed 04/24/18] PMH/Surg Hx/FS Hx/Imm Hx Endocrine/Hematology History: Denies: Hx Diabetes, Hx Thyroid Disease Cardiovascular History: Reports: Hx Hypercholesterolemia, Hx Hypertension, Hx Pacemaker/ICD - 08/2011 dual chamber implant @[facility] [place], Other Cardiovascular Problems /Disorders - HX OF AFIB, SSS, HYPERLIPIDEMIA Respiratory History: Reports: Hx Sleep Apnea - severe SYMONE, current CPAP user Denies: Hx Asthma, Hx Chronic Obstructive Pulmonary Disease (COPD) GI History: Reports: Other GI Disorders - OBESITY Denies: Hx Ulcer History: Reports: Hx Benign Prostatic Hyperplasia, Other Problems/ Disorders - DX BPH 2012, FOLLOWED BY DR HERNANDEZ Musculoskeletal History: Reports: Hx Arthritis - OSTEO, Hx Gout, Other Musculoskeletal History - CURRENTLY PAIN IN LEFT KNEE, 11/27 RIGHT TKR Denies: Hx Rheumatoid Arthritis, Hx Osteoporosis Sensory History: Reports: Hx Contacts or Glasses - GLASSES Denies: Hx Hearing Aid Opthamlomology History: Reports: Hx Contacts or Glasses - GLASSES Psychiatric History: Denies: Hx Anxiety, Hx Attention Deficit Hyperactivity Disorder, Hx Eating Disorder, Hx Depression, Hx Panic Disorder, Hx Post Traumatic Stress Disorder, Hx Inpatient Treatment, Hx Community Mental Health Tx, Hx Schizophrenia, Hx Bipolar Disorder, Hx Suicide Attempt, Hx of Violent Episodes Against Others, Hx Substance Abuse, Other Psychiatric Issues/Disorders - Surgical History Surgery Procedure, Year, and Place: Colonscopy w/biopsies 08/16 [facility] [place]. Dual chamber pacemaker implant 08/20 [facility] [place]. Colonoscopy w/biopsies 07/22 [facility] [place]. RIGHT TOTAL KNEE REPLACEMENT 11/27 [facility] [place] Hx Anesthesia Reactions: Yes - SOB, DIFFICULTY BREATHING POST TKR 11/27 Infectious Disease History: Reports: Hx Shingles - 10/26 MILD CASE ON CHEST Denies: Hx Clostridium Difficile, Hx Hepatitis, Hx Human Immunodeficiency Virus (HIV), Hx of Known/Suspected MRSA, Hx Tuberculosis, Hx Known/Suspected VRE , Hx Known/Suspected VRSA, History Other Infectious Disease, Traveled Outside the in Last 30 Days - Family History Known Family History: Positive: Cardiac Disease - Social History Occupation: Employed Part-time Lives: With Family Alcohol Use: Occasionally Alcohol Amount: 1 GLASS WINE WITH DINNER Substance Use Type: Reports: None Hx Tobacco Use: No Smoking Status (MU): Never Smoked Tobacco Have You Smoked in the Last Year: No Review of Systems Negative: Fever Positive: Edema - L knee, Other - L knee pain, L knee erythema All Other Systems Reviewed And Are Negative: Yes Physical Exam - Summary Physical Exam Summary: Appearance: Well appearing, no pain distress Skin: warm, dry, reflects adequate perfusion Head/face: normal Eyes: EOMI, CHARLES ENT: normal Neck: supple, non-tender Respiratory: CTA, breath sounds present Cardiovascular: RRR, pulses symmetrical Abdomen: non-tender, soft Bowel Sounds: present Musculoskeletal: strength/ROM intact, intact sutured surgical wound at anterior L knee. There is little blood in distal portion of L knee from suture. Some warmth diffusely in lower knee to the ankle, no drainage from wound other than slight blood. Warmth in area of swelling is the same throughout. Neuro: normal, sensory motor intact, A&Ox3 Triage Information Reviewed: Yes Vital Signs On Initial Exam: Initial Vitals Temp Pulse Resp BP Pulse Ox 99.6 F 67 16 171/86 95 04/24/18 07:48 04/24/18 07:48 04/24/18 07:48 04/24/18 07:48 04/24/18 07:48 Vital Signs Reviewed: Yes Diagnostics - Vital Signs Vital Signs Temp Pulse Resp BP Pulse Ox 04/24/18 10:00 62 97 04/24/18 09:51 66 173/88 98 04/24/18 09:21 62 167/81 96 04/24/18 09:00 61 97 04/24/18 08:21 60 169/83 96 04/24/18 08:07 65 97 04/24/18 07:53 63 97 04/24/18 07:51 171/86 04/24/18 07:48 99.6 F 67 16 171/86 95 - Laboratory Lab Results: Lab Results 04/24/18 04/24/18 04/24/18 Range/Units 08:03 08:03 08:03 WBC 11.4 H (3.5-10.8) 10^3/ul RBC 3.50 L (4.00-5.40) 10^6/ul Hgb 10.5 L (14.0-18.0) g/dl Hct 31 L (42-52) % MCV 88 (80-94) fL MCH 30 (27-31) pg MCHC 34 (31-36) g/dl RDW 14 (10.5-15) % Plt Count 200 (150-450) 10^3/ul MPV 8.7 (7.4-10.4) um3 Neut % (Auto) 72.7 (38-83) % Lymph % (Auto) 14.7 L (25-47) % [place] % (Auto) 10.5 H (0-7) % Eos % (Auto) 1.5 (0-6) % Baso % (Auto) 0.6 (0-2) % Absolute Neuts (auto) 8.3 H (1.5-7.7) 10^3/ul Absolute Lymphs (auto) 1.7 (1.0-4.8) 10^3/ul Absolute Monos (auto) 1.2 H (0-0.8) 10^3/ul Absolute Eos (auto) 0.2 (0-0.6) 10^3/ul Absolute Basos (auto) 0.1 (0-0.2) 10^3/ul Absolute Nucleated RBC 0 10^3/ul Nucleated RBC % 0 INR (Anticoag Therapy) 1.48 H (0.77-1.02) Sodium 138 (135-145) mmol/L Potassium 3.6 (3.5-5.0) mmol/L Chloride 104 (101-111) mmol/L Carbon Dioxide 28 (22-32) mmol/L Anion Gap 6 (2-11) mmol/L BUN 18 (6-24) mg/dL Creatinine 1.11 (0.67-1.17) mg/dL Est GFR ( Amer) 83.1 (>60) Est GFR (Non-Af Amer) 64.6 (>60) BUN/Creatinine Ratio 16.2 (8-20) Glucose 101 H (70-100) mg/dL Calcium 8.5 L (8.6-10.3) mg/dL Result Diagrams: 04/24/18 08:03 04/24/18 08:03 Lab Statement: Any lab studies that have been ordered have been reviewed, and results considered in the medical decision making process. - Additional Comments Diagnostic Additional Comments: Venous Doppler Reveals: 1. NO LEFT LOWER EXTREMITY DEEP VEIN THROMBOSIS. 2. COMPLEX FLUID COLLECTION WITHIN POPLITEAL FOSSA MEASURING 7.6 IMAGES IN MAXIMUM DIMENSION. THIS MAY BE POSTSURGICAL OR A COMPLEX TAVERA'S CYST. ED physician has reviewed this report. Lower Extremity Course/Dx - Course Course Of Treatment: Delia BARNETT went to visit the pt in the ED at 10:13. Orthopedics clear the patient following a vascular study that was negative for DVT. Patient's INR is slightly subtherapeutic at 1.5. They made no changes to his regimen. He will follow-up with Dr. Mcdermott in the outpatient setting. Fluid in the popliteal fossa on ultrasound is likely postoperative in nature. - Diagnoses Differential Diagnosis/HQI/PQRI: Positive: Other - DVT, post op infection, hematoma Provider Diagnoses: Postoperative pain of left knee - Physician Notifications Discussed Care Of Patient With: Indy Pulliam Time Discussed With Above Provider: 08:10 Instructed by Provider To: MD Will See In ED Discharge - Sign-Out/Discharge Documenting (check all that apply): Discharge/Admit/Transfer - Discharge - Discharge Plan Condition: Good Disposition: HOME Patient Education Materials: Leg Edema (ED) Referrals: Kelsie Mcdermott MD [Medical Doctor] - Yosvany Ruiz DO [Primary Care Provider] - 2 Days Additional Instructions: Return to the ED for new or worsening symptoms. - Continue coumadin as directed - Follow up with Dr. Mcdermott as directed. - Ice frequently (before/ after PT, before bed, before activities), elevate foot higher than heart, continue PT, keep leg fully extended when resting. - Call office with any questions over the weekend- [phone]. Vitaliy Salcedo liquefaction supervisor PA available at any time. - Billing Disposition and Condition Condition: STABLE Disposition: Home The documentation as recorded by the Sagar woods Stephanie accurately reflects the service I personally performed and the decisions made by me, Micheal Landeros MD.
[2018-04-24 12:09] VITALS: BP 171/77
== END 2018-04-24 11:00 | disposition home or self-care (01) ==
LOC: ED 07:45
DX: M25.562 Pain in left knee (principal); G89.18 Other acute postprocedural pain; Z96.652 Presence of left artificial knee joint; M79.89 Other specified soft tissue disorders; I10 Essential (primary) hypertension; E78.00 Pure hypercholesterolemia, unspecified; Z95.810 Presence of automatic (implantable) cardiac defibrillator; E78.5 Hyperlipidemia, unspecified; I48.91 Unspecified atrial fibrillation; Z79.01 Long term (current) use of anticoagulants; E66.9 Obesity, unspecified; N40.0 Benign prostatic hyperplasia without lower urinary tract symptoms; Z79.899 Other long term (current) drug therapy; Z88.8 Allergy status to other drugs, medicaments and biological substances
CPT/HCPCS: 36415; 80048; 85025; 85610; 99283

== ENCOUNTER 2018-12-06 08:40 | Inpatient (IN) | payer MEDICARE, BC ==
--- NOTE | 2018-12-06 09:00 | ED ---
HPI Chest Pain - HPI Summary HPI Summary: Pt is a 73 y/o male who presents to the ED c/o chest pressure. He states the symptoms have been building up for a while, but became noticeable yesterday. Pt also c/o SOB and feels as if there is fluid in his lungs. Lying flat and exercise make the SOB worse. He states the SOB is constant, however the chest pressure is intermittent. He currently has very mild chest pressure. Pt denies any nausea, cough, or leg pain. He notes LE edema ever since his knee replacement surgery. He takes daily ASA. PMHx HLD, HTN, AFib, SSS, PNA, and bronchitis. Pt has a pacemaker. - History of Current Complaint Chief Complaint: EDChestPainROMI Time Seen by Provider: 12/06/18 08:54 Hx Obtained From: Patient Onset/Duration: Started Weeks Ago, Still Present Timing: Constant - SOB, Intermittent - chest pressure Current Severity: Mild Pain Intensity: 3 Pain Scale Used: 0-10 Numeric Chest Pain Location: Diffuse Chest Pain Radiates: No Character: Pressure/Squeezing Aggravating Factor(s): Exertion, Recumbent Position Alleviating Factor(s): Nothing Associated Signs and Symptoms: Positive: Shortness of Breath. Negative: Nausea , Cough, Calf Pain/Swelling - Additional Pertinent History Primary Care Physician: YANIV - Allergy/Home Medications Allergies/Adverse Reactions: Allergies Allergy/AdvReac Type Severity Reaction Status Date / Time Latex, Natural Rubber Allergy Intermediate See Comment Verified 04/24/18 07:58 metoprolol [From Toprol XL] Allergy See Comment Verified 04/24/18 07:58 Home Medications: Home Medications Aspirin 81 mg CHEW TAB* [Aspirin Low Dose TAB*] 81 mg PO DAILY 12/06/18 [ History Confirmed 12/06/18] PMH/Surg Hx/FS Hx/Imm Hx Endocrine/Hematology History: Denies: Hx Diabetes, Hx Thyroid Disease Cardiovascular History: Reports: Hx Hypercholesterolemia, Hx Hypertension, Hx Pacemaker/ICD - 08/2011 dual chamber implant @[facility] [place], Other Cardiovascular Problems /Disorders - HX OF AFIB, SSS, HYPERLIPIDEMIA Respiratory History: Reports: Hx Sleep Apnea - severe SYMONE, current CPAP user Denies: Hx Asthma, Hx Chronic Obstructive Pulmonary Disease (COPD) GI History: Reports: Other GI Disorders - OBESITY Denies: Hx Ulcer History: Reports: Hx Benign Prostatic Hyperplasia, Other Problems/ Disorders - DX BPH 2012, FOLLOWED BY DR HERNANDEZ Musculoskeletal History: Reports: Hx Arthritis - OSTEO, Hx Gout, Other Musculoskeletal History - CURRENTLY PAIN IN LEFT KNEE, 11/27 RIGHT TKR Denies: Hx Rheumatoid Arthritis, Hx Osteoporosis Sensory History: Reports: Hx Contacts or Glasses - GLASSES Denies: Hx Hearing Aid Opthamlomology History: Reports: Hx Contacts or Glasses - GLASSES Psychiatric History: Denies: Hx Anxiety, Hx Attention Deficit Hyperactivity Disorder, Hx Eating Disorder, Hx Depression, Hx Panic Disorder, Hx Post Traumatic Stress Disorder, Hx Inpatient Treatment, Hx Community Mental Health Tx, Hx Schizophrenia, Hx Bipolar Disorder, Hx Suicide Attempt, Hx of Violent Episodes Against Others, Hx Substance Abuse, Other Psychiatric Issues/Disorders - Surgical History Surgery Procedure, Year, and Place: Colonscopy w/biopsies 08/16 [facility] [place]. Dual chamber pacemaker implant 08/20 [facility] [place]. Colonoscopy w/biopsies 07/22 [facility] [place]. RIGHT TOTAL KNEE REPLACEMENT 11/27 [facility] [place] Hx Anesthesia Reactions: Yes - SOB, DIFFICULTY BREATHING POST TKR 11/27 Infectious Disease History: No Infectious Disease History: Reports: Hx Shingles - 10/26 MILD CASE ON CHEST Denies: Hx Clostridium Difficile, Hx Hepatitis, Hx Human Immunodeficiency Virus (HIV), Hx of Known/Suspected MRSA, Hx Tuberculosis, Hx Known/Suspected VRE , Hx Known/Suspected VRSA, History Other Infectious Disease, Traveled Outside the [place] in Last 30 Days - Family History Known Family History: Positive: Cardiac Disease - Social History Alcohol Use: Occasionally Alcohol Amount: 1 GLASS WINE WITH DINNER Hx Substance Use: No Substance Use Type: Reports: None Hx Tobacco Use: No Smoking Status (MU): Never Smoked Tobacco Have You Smoked in the Last Year: No Review of Systems Positive: Chest Pain - pressure Positive: Shortness Of Breath. Negative: Cough Negative: Nausea Positive: Other - NEGATIVE: leg pain All Other Systems Reviewed And Are Negative: Yes Physical Exam - Summary Physical Exam Summary: Appearance: Well appearing, no pain distress Skin: warm, dry, reflects adequate perfusion Head/face: normal Eyes: EOMI, CHARLES ENT: mucous membranes moist Neck: supple, non-tender, JVD Respiratory: CTA, breath sounds present, rustling in right base Cardiovascular: RRR, pulses symmetrical, no murmur, 3+ LE pitting edema Abdomen: non-tender, soft Bowel Sounds: present Musculoskeletal: normal, strength/ROM intact, left knee replacement scar Neuro: normal, sensory motor intact, A&Ox3 Triage Information Reviewed: Yes Vital Signs On Initial Exam: Initial Vitals Temp Pulse Resp BP Pulse Ox 98.5 F 60 22 154/79 95 12/06/18 08:47 12/06/18 08:47 12/06/18 08:47 12/06/18 08:47 12/06/18 08:47 Vital Signs Reviewed: Yes Diagnostics - Vital Signs Vital Signs Temp Pulse Resp BP Pulse Ox 12/06/18 08:47 98.5 F 60 22 154/79 95 - Laboratory Result Diagrams: 12/06/18 08:59 12/06/18 08:59 Lab Statement: Any lab studies that have been ordered have been reviewed, and results considered in the medical decision making process. - Radiology CXR Radiology Interpretation Completed By: Radiologist Summary of Radiographic Findings: CARDIOMEGALY WITH INTERSTITIAL EDEMA CONSISTENT WITH CHF. ED physician reviewed radiology report. - EKG 8:51 Cardiac Rate: NL - Atrial paced rhythm at 67 bpm Summary of EKG Findings: 1st degree AV block, RBBB, baseline wander, deep T waves in V3 and V4 otherwise non-specific, atrial paced rhythm Chest Pain Course/Dx - Course Course Of Treatment: Nurse's notes reviewed. Patient presents with chest tightness and shortness of breath with accumulation of fluid on his legs. CHF is indicated on his chest x-ray and his BNP is elevated as well. Nonspecific EKG changes. Hospitalist contacted and will admit for further. - Chest Pain Differential Diagnosis/HQI/PQRI: Acute TX, CHF, Chest Wall, GI Disease, Lower Respiratory Infection, Pulmonary Edema, Pulmonary Embolism - Diagnoses Provider Diagnoses: Acute CHF - Provider Notifications Discussed Care Of Patient With: Chandler Mata Time Discussed With Above Provider: 09:53 Instructed by Provider To: Admit As Inpatient Discharge - Sign-Out/Discharge Documenting (check all that apply): Patient Departure - Admit - Discharge Plan Condition: Stable Disposition: ADMITTED TO [facility] - Billing Disposition and Condition Condition: STABLE Disposition: Admitted to [facility] - Attestation Statements Document Initiated by Scribe: Yes Documenting Scribe: Kira Henriquez Provider For Whom Scribe is Documenting (Include Credential): Micheal Landeros MD Scribe Attestation: Kira Forbes, scribed for Micheal Landeros MD on 12/06/18 at 1816. Scribe Documentation Reviewed: Yes Provider Attestation: The documentation as recorded by the scribeKira accurately reflects the service I personally performed and the decisions made by me, Micheal Landeros MD Status of Scribe Document: Viewed
[2018-12-06 09:05] LABS: ABS Basophils 0.1 10^3/ul (0-0.2); ABS Eosinophils 0.2 10^3/ul (0-0.6); ABS Lymphocytes 1.1 10^3/ul (1.0-4.8); ABS Monocytes 0.9 10^3/ul (0-0.8); ABS Nucleated RBC 0 10^3/ul; Eosinophil % 1.2 %; Hematocrit 41 % (42-52); Hemoglobin 13.7 g/dl (14.0-18.0); Lymphocyte % 9.1 %; Mean Corpuscular HGB Conc 33 g/dl (31-36); Mean Corpuscular Hemoglobin 30 pg (27-31); Mean Corpuscular Volume 91 fL (80-94); Mean Platelet Volume 9.1 fL (7.4-10.4); Nucleated Red Blood Cells % 0; Platelet Count 212 10^3/ul (150-450); Red Blood Count 4.54 10^6/ul (4.00-5.40); Red Cell Distribution Width 14 % (10.5-15); White Blood Count 12.2 10^3/ul (3.5-10.8)
[2018-12-06] MEDS ORDERED: Aspirin 81 mg CHEW TAB* 81 MG TAB.CHEW PO ONE (09:06)
[2018-12-06 09:22] LABS: Albumin 4.3 g/dL (3.2-5.2); Albumin/Globulin Ratio 1.5 (1-3); BUN/Creatinine Ratio 16.5 (8-20); Calcium 9.1 mg/dL (8.6-10.3); Globulin 2.8 g/dL (2-4); Potassium 3.9 mmol/L (3.5-5.0); Total Bilirubin 0.5 mg/dL (0.2-1.0); Total Protein 7.1 g/dL (6.4-8.9)
[2018-12-06] MEDS ORDERED: Furosemide IV* 10 MG/ML 10 ML VIAL (100 MG) IV ONE (09:23)
[2018-12-06 09:24] LABS: Troponin I 0.03 ng/mL (<0.04)
[2018-12-06 09:29] LABS: INR 0.94 (0.77-1.02)
[2018-12-06 10:28] LABS: TSH (Thyroid Stimulating Horm) 3.05 mcIU/mL (0.34-5.60)
[2018-12-06] MEDS ORDERED: Ondansetron INJ* 2 MG/ML VIAL IV PRN (11:32)
[2018-12-06] MEDS ORDERED: Acetaminophen TAB* 325 MG PO PRN (11:32)
[2018-12-06] MEDS: Enoxaparin(*) 40 MG/0.4 ML SYR SUBCUT SCH (12:17)
--- NOTE | 2018-12-06 13:42 | HP ---
CC: Dr. Yosvany Ruiz * ADMISSION HISTORY AND PHYSICAL: DATE OF ADMISSION: PRIMARY CARE PROVIDER: Yosvany Ruiz DO HEALTHCARE PROXY: His . CODE STATUS: Full. SOURCE OF INFORMATION: History obtained from interview with the patient, his . RELIABILITY: Good. CHIEF COMPLAINT: Chest pressure and shortness of breath. HISTORY OF PRESENT ILLNESS: This is a 73-year-old man with a past medical history of atrial fibrillation as well as sick sinus syndrome with a permanent pacemaker and hypertension, who was in his usual state of health until approximately 1 week prior to presentation, started noticing that he has slightly increased dyspnea on exertion. He remained stable for approximately 1 week until the day prior to presentation. He woke up in the morning, was feeling relatively well, social engagement; however, in the afternoon became more short of breath and had much more difficulty catching his breath. He noticed dyspnea on exertion walking from 1 room to another versus baseline as he usually goes to [facility] and performs 20 to 30 minutes on the elliptical as well as exercises with weights, which he performed 2 days prior to presentation. He went to bed overnight, he woke up at approximately 2:30 a.m. on the morning of admission, breathing heavy with difficulty catching his breath. He sat up, walked around, worked at his computer and then had difficulty falling back asleep, felt as if he was "gasping." He also associated it with chest pressure overnight without nausea, vomiting, lightheadedness or loss of consciousness. He denies any orthopnea, stable with 1 pillow. His chest pressure he described as a pressure and central, currently 1/10, that improves with the administration of Lasix and diuresis after that. He does not check his weights at home. He has chronic lower extremity swelling after his bilateral total knee replacements, which is unchanged. He does not monitor sodium intake at home and he has had no changes in his medications. When seen by this author, he felt much better sitting up in bed, still has 1/10 chest pressure. PAST MEDICAL HISTORY: Includes: 1. Atrial fibrillation. 2. Sick sinus syndrome. 3. Permanent pacemaker placement. 4. Hypertension. 5. BPH. 6. Obstructive sleep apnea, on CPAP, which he is compliant with, pressure of 9. PAST SURGICAL HISTORY: 1. History of tonsillectomy. 2. History of bilateral total knee replacements. MEDICATIONS: 1. Diltiazem 180 daily. 2. Aspirin 81 mg daily. 3. Saw palmetto. 4. Vitamin C. 5. Multivitamin. ALLERGIES: To LATEX, NATURAL RUBBER, and METOPROLOL. 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 Drinks about a glass of wine per week. Occasional scotch as well. No tobacco. No illicits. Lives with his . FAMILY HISTORY: Mother, CHF, at 93. His father had pancreatic cancer. REVIEW OF SYSTEMS: As per HPI including PND as well as increased dyspnea on exertion over the last week, punctuated by increased shortness of breath over the last day. Otherwise, all other systems negative. PHYSICAL EXAMINATION GENERAL: Sitting up in bed, interactive, pleasant, in no apparent distress, talks in full sentences. VITAL SIGNS: Vitals when seen by this author 149/74, heart rate 60, respiratory rate is 16, T-max in the emergency room is 98.5. HEENT: Oropharynx is clear. He has moist mucous membranes. Sclerae are anicteric. NECK: He has non-elevated JVD. No carotid bruits. LUNGS: Have rales in his right base, otherwise clear to auscultation. HEART: He has regular rate and rhythm. No audible murmurs, rubs or gallops. ABDOMEN: Soft, nontender, nondistended. EXTREMITIES: Warm and well perfused. He has 1 to 2+ bilateral lower extremity edema to the knees. NEURO: He is alert and oriented x3. His cranial nerves II through XII are intact. He has no apparent anxiety, agitation or depression. LABORATORY DATA/DIAGNOSTIC STUDIES: Labs are reviewed, notable for BUN 19, creatinine 1.15. Troponin I 0.03. BNP 193. TSH 3.0. White blood cell count 12.2, 81.8% neutrophils. INR 0.94. Chest x-ray consistent with cardiomegaly and interstitial edema. EKG, right bundle- branch block and left anterior fascicular block. ASSESSMENT AND PLAN: This is a 73-year-old man with past medical history of hypertension, obstructive sleep apnea with CPAP as well as atrial fibrillation, not on anticoagulation, presented to the hospital with increasing dyspnea on exertion. 1. Dyspnea on exertion. Suspect new onset congestive heart failure exacerbation, unknown diastolic or systolic. Reason for decompensation unclear , it could be uncontrolled atrial fibrillation in the home, although currently in normal sinus rhythm. With chest pressure, concern for acute myocardial infarction. Dietary indiscretion without known CHF is also a possibility. Low suspicion for a pulmonary embolism and/or infection. We will check a transthoracic echocardiogram to better qualify systolic, diastolic, and valvular function. Trend troponins for 2 additional troponins. He received Lasix 60 in the emergency room. Strict Is and Os and daily weights. Check BMP in the morning. Replete electrolytes as needed. Dose additional Lasix tomorrow as necessary and based on renal function. Check lipids. 2. Obstructive sleep apnea. Continue pressure at 9. 3. Hypertension. Continue diltiazem. 4. DVT prophylaxis. Lovenox. TIME SPENT: Greater than 50 minutes were spent on the admission of this patient , greater than half [id number] with the patient. [id number]/[facility] #: [id number] MTDD
[2018-12-06] MEDS: Ascorbic Acid TAB* 500 MG PO SCH (20:17)
[2018-12-06] MEDS: Diltiazem CD CAP* 180 MG PO SCH (20:17)
[2018-12-06] MEDS: SAW PALMETTO FRUIT 450 MG PO SCH (20:18)
[2018-12-07 05:58] LABS: ABS Basophils 0 10^3/ul (0-0.2); ABS Eosinophils 0.2 10^3/ul (0-0.6); ABS Lymphocytes 1.3 10^3/ul (1.0-4.8); ABS Monocytes 1.1 10^3/ul (0-0.8); ABS Neutrophils 7.4 10^3/ul (1.5-7.7); ABS Nucleated RBC 0 10^3/ul; Eosinophil % 1.8 %; Hematocrit 39 % (42-52); Hemoglobin 13.2 g/dl (14.0-18.0); Lymphocyte % 12.8 %; Mean Corpuscular HGB Conc 34 g/dl (31-36); Mean Corpuscular Hemoglobin 31 pg (27-31); Mean Corpuscular Volume 90 fL (80-94); Mean Platelet Volume 9.3 fL (7.4-10.4); Nucleated Red Blood Cells % 0; Platelet Count 203 10^3/ul (150-450); Red Blood Count 4.27 10^6/ul (4.00-5.40); Red Cell Distribution Width 14 % (10.5-15)
[2018-12-07 06:17] LABS: BUN/Creatinine Ratio 15.9 (8-20); Calcium 9.1 mg/dL (8.6-10.3); EGFR African American 81.5 (>60); EGFR Non-African American 67.4 (>60); Magnesium 2.2 mg/dL (1.9-2.7); Potassium 3.5 mmol/L (3.5-5.0)
[2018-12-07] MEDS ORDERED: Potassium Chlor TAB* 20 MEQ TAB.ER PO ONE (07:28)
[2018-12-07] MEDS ORDERED: Furosemide IV* 10 MG/ML 10 ML VIAL (100 MG) IV ONE (07:29)
[2018-12-07 07:56] LABS: Troponin I 0.03 ng/mL (<0.04)
[2018-12-07] MEDS: SAW PALMETTO FRUIT 450 MG PO SCH ×2 (09:24→21:25)
[2018-12-07] MEDS: Ascorbic Acid TAB* 500 MG PO SCH ×2 (09:25→21:26)
[2018-12-07] MEDS: Aspirin 81 mg CHEW TAB* 81 MG TAB.CHEW PO SCH (09:26)
[2018-12-07] MEDS: Enoxaparin(*) 40 MG/0.4 ML SYR SUBCUT SCH (13:00)
--- NOTE | 2018-12-07 13:27 | ECHO ---
Patient: ENRIQUE SHAW [facility] Rec#: [id number] : 1945 Date: 12/07/2018 Age: 73y Height: 173 cm / 68.1 in Weight: 98 kg / 216.0 lbs Sex: M BSA: 2.11 Room#: 401 Admit Date#: 12/06/2018 Type: Inpatient Referring: Chandler Mata MD Reading: John Gutierrez MD Volunteer Services Coordinator: Karo Caldera,TRAY,RDMS CC: Yosvany Ruiz DO Transthoracic Echocardiogram Indication: CHF BP: 153/82 HR: 65 Rhythm: NSR Findings History: AFIB, pacemaker, HTN, SYMONE Technical Comments: The study quality is fair. Left Ventricle: The left ventricular chamber size is normal. Mild concentric left ventricular hypertrophy is observed. Left ventricular systolic function is at the lower limits of normal. The estimated ejection fraction is 45-50%. There is abnormal ventricular septal wall motion consistent with right ventricular pacemaker. There is no consistent Doppler evidence of clinically significant diastolic dysfunction. The basal inferior, and mid inferior wall segments are hypokinetic (score 2). Overall wallmotion score index is 2.00 Left Atrium: The left atrial chamber size is normal. Right Ventricle: The right ventricular chamber size and systolic function are within normal limits. A pacemaker wire is visualized in the right ventricle. Right Atrium: The right atrium is mildly dilated. A pacemaker wire is visualized in the right atrium. Aortic Valve: The aortic valve is trileaflet. Systolic excursion of the aortic valve is normal. There is no evidence of aortic regurgitation. There is no evidence of aortic stenosis. Mitral Valve: The mitral valve leaflets appear normal. There is trace to mild mitral regurgitation. There is no evidence of mitral stenosis. Tricuspid Valve: The tricuspid valve leaflets are normal. There is mild tricuspid regurgitation. There is evidence of mild pulmonary hypertension. Pulmonic Valve: The pulmonic valve appears normal. There is a trace pulmonic regurgitation. Pericardium: There is no significant pericardial effusion. Aorta: The aortic root appears normal. There is no dilatation of the aortic arch. Pulmonary Artery: The main pulmonary artery appears normal. Venous: The inferior vena cava appears normal in size. There is a greater than 50% respiratory change in the inferior vena cava dimension. Summary: There are no significant changes when compared to the previous study done on 05/14/17 Conclusions Left ventricular systolic function is at the lower limits of normal. The estimated ejection fraction is 45-50%. There is abnormal ventricular septal wall motion consistent with right ventricular pacemaker. The basal inferior, and mid inferior wall segments are hypokinetic (score 2). A pacemaker wire is visualized in the right ventricle. There is no evidence of aortic stenosis. There is trace to mild mitral regurgitation. There is mild tricuspid regurgitation. There is no significant pericardial effusion. There are no significant changes when compared to the previous study done on 05/14/17 Measurements Name Value Normal Range RVIDd (AP) 2D 3.6 cm (0.9 - 2.6) RVDdMajor (2D) 3.7 cm (2.2 - 4.4) RAd ISD 4CH 5.3 cm (3.4 - 4.9) RA (A4C)W 4.7 cm (2.9 - 4.6) IVSd (2D) 1.4 cm (0.6 - 1) LVPWd (2D) 1.3 cm (0.6 - 1) LVIDd (2D) 5.1 cm (3.6 - 5.4) LVIDs (2D) 3.8 cm - LV FS (2D) 27 % (25 - 45) Aortic Annulus 2 cm (1.4 - 2.6) Ao root diameter (2D) 3.1 cm (2.1 - 3.5) Ascending Ao 3.1 cm (2.1 - 3.4) Aortic arch 3.3 cm (1.8 - 3.4) LA dimension (AP) 2D 5.1 cm (2.3 - 3.8) LAd ISD 4CH 5.6 cm (2.9 - 5.3) LA ISD 4CH W 4.5 cm (2.5 - 4.5) Name Value Normal Range LA ESV BP (A/L) index 29 ml/m2 - Name Value Normal Range MV E-wave Vmax 1.2 m/sec - MV deceleration time 177 msec - MV A-wave Vmax 0.5 m/sec - MV E:A ratio 2.3 ratio - LV septal e' Vmax 0.05 m/sec - LV lateral e' Vmax 0.07 m/sec - LV E:e' septal ratio 25 ratio - LV E:e' lateral ratio 17 ratio - Name Value Normal Range AV Vmax 1.2 m/sec - AV VTI 22 cm - AV peak gradient 6 mmHg - AV mean gradient 3 mmHg - LVOT Vmax 0.8 m/sec - LVOT VTI 16 cm - LVOT peak gradient 2.6 mmHg - LVOT mean gradient 2 mmHg - MICHAEL Vmax 0.6 m/sec - Name Value Normal Range MV Vmax 1.1 m/sec - MV VTI 25 cm - MV peak gradient 5 mmHg - MV mean gradient 1.4 mmHg - MV PHT 74 msec - MVA (PHT) 3 cm2 - Name Value Normal Range TR Vmax 2.9 m/sec - TR peak gradient 34 mmHg - RAP 3 mmHg - RVSP 37 mmHg - IVC diameter 2.3 cm - Name Value Normal Range PV Vmax 0.7 m/sec - PV peak gradient 2 mmHg - Wallmotion BAS Not Seen BA Not Seen BAL Not Seen JIM Not Seen BI Hypokinetic BIS Not Seen MAS Not Seen MA Not Seen MAL Not Seen MIL Not Seen NJ Hypokinetic MIS Not Seen Not Seen AA Not Seen AL Not Seen AI Not Seen APEX Not Seen
--- NOTE | 2018-12-07 17:41 | PN ---
Subjective Date of Service: 12/07/18 Interval History: Seen throughout the day No CP. SOB resolved Walking on the floor Discussed TTE results with pt and . They will stay for stress tomorrow Objective Active Medications: Acetaminophen (Tylenol Tab*) 650 mg PO Q4H PRN PRN Reason: FEVER/PAIN Ascorbic Acid (Vitamin C Tab*) 1,000 mg PO BID [facility] Last Admin: 12/07/18 09:25 Dose: 1,000 mg Aspirin (Aspirin 81 Mg Chew Tab*) 81 mg PO DAILY [facility] Last Admin: 12/07/18 09:26 Dose: 81 mg Diltiazem HCl (Cardizem Cd Cap*) 180 mg PO BEDTIME [facility] Last Admin: 12/06/18 20:17 Dose: 180 mg Enoxaparin Sodium (Lovenox(*)) 40 mg SUBCUT Q24H [facility] Last Admin: 12/07/18 13:00 Dose: Not Given Saw Riverview Fruit [ (Saw Riverview] 450 Mg) 450 mg PO BID [facility] Last Admin: 12/07/18 09:24 Dose: Not Given Ondansetron HCl (Zofran Inj*) 4 mg IV Q4H PRN PRN Reason: NAUSEA/VOMITING Vital Signs - 8 hr 12/07/18 12/07/18 11:32 15:25 Temperature 97.3 F 97.5 F Pulse Rate 60 59 Respiratory 18 16 Rate Blood Pressure 142/83 143/76 (mmHg) O2 Sat by Pulse 97 98 Oximetry Oxygen Devices in Use Now: None Appearance: NAD Eyes: No Scleral Icterus Ears/Nose/Mouth/Throat: NL Teeth, Lips, Gums, Clear Oropharnyx Neck: NL Appearance and Movements; NL JVP Respiratory: Symmetrical Chest Expansion and Respiratory Effort, - - rales bl bases Cardiovascular: RRR Abdominal: NL Sounds; No Tenderness; No Distention, No Hepatosplenomegaly Lymphatic: No Cervical Adenopathy Extremities: - - 1-2+ LE edema Neurological: Alert and Oriented x 3 Result Diagrams: 12/07/18 05:22 12/07/18 05:22 Assess/Plan/Problems-Billing Assessment: 73 yo M h/o HTN pw new onset CHF found with regional wall motion abnormalities and newly decreased ED on TTE - Patient Problems (1) CAD (coronary artery disease) Comment: concern for CAD with new onset heart failure and RWMA ASA stress test tomorrow (2) Heart failure, systolic, with acute decompensation Comment: Lasix 60mg again today strict i/o, daily weights fluid restrict Dose lasix daily based on need/kidney fxn (3) HTN (hypertension) Comment: Normotensive, continue cardizem. (4) Afib Comment: cardizem (5) DVT prophylaxis Comment: Lovenox Status and Disposition: stress test tomorrow
[2018-12-07] MEDS: Diltiazem CD CAP* 180 MG PO SCH (21:26)
[2018-12-08 07:30] VITALS: BP 146/75
--- NOTE | 2018-12-08 09:35 | PN ---
Subjective Date of Service: 12/08/18 Interval History: Pt feels well. Waiting for stress test. Denies SOB or CP Objective Active Medications: Acetaminophen (Tylenol Tab*) 650 mg PO Q4H PRN PRN Reason: FEVER/PAIN Ascorbic Acid (Vitamin C Tab*) 1,000 mg PO BID [facility] Last Admin: 12/07/18 21:26 Dose: 1,000 mg Aspirin (Aspirin 81 Mg Chew Tab*) 81 mg PO DAILY [facility] Last Admin: 12/07/18 09:26 Dose: 81 mg Diltiazem HCl (Cardizem Cd Cap*) 180 mg PO BEDTIME [facility] Last Admin: 12/07/18 21:26 Dose: 180 mg Enoxaparin Sodium (Lovenox(*)) 40 mg SUBCUT Q24H [facility] Last Admin: 12/07/18 13:00 Dose: Not Given Saw Remus Fruit [ (Saw Remus] 450 Mg) 450 mg PO BID [facility] Last Admin: 12/07/18 21:25 Dose: Not Given Ondansetron HCl (Zofran Inj*) 4 mg IV Q4H PRN PRN Reason: NAUSEA/VOMITING Vital Signs - 8 hr 12/08/18 12/08/18 03:38 07:09 Temperature 97.4 F 97.5 F Pulse Rate 59 60 Respiratory 18 16 Rate Blood Pressure 153/82 146/75 (mmHg) O2 Sat by Pulse 96 96 Oximetry Oxygen Devices in Use Now: None Appearance: 73 yo M in nAD, AAOx3 Eyes: No Scleral Icterus, PERRLA Ears/Nose/Mouth/Throat: NL Teeth, Lips, Gums, Mucous Membranes Moist Neck: NL Appearance and Movements; NL JVP, Trachea Midline Respiratory: Symmetrical Chest Expansion and Respiratory Effort, Clear to Auscultation Cardiovascular: NL Sounds; No Murmurs; No JVD, RRR Abdominal: NL Sounds; No Tenderness; No Distention Lymphatic: No Cervical Adenopathy Extremities: No Edema, No Clubbing, Cyanosis Skin: No Rash or Ulcers, No Nodules or Sclerosis Neurological: Alert and Oriented x 3, NL Muscle Strength and Tone Result Diagrams: 12/07/18 05:22 12/07/18 05:22 Assess/Plan/Problems-Billing Assessment: 73 yo M h/o HTN pw new onset CHF found with regional wall motion abnormalities and newly decreased ED on TTE - Patient Problems (1) CAD (coronary artery disease) Comment: concern for CAD with new onset heart failure ASA stress test today (2) HTN (hypertension) Comment: SBP in 140's-150's range. will start lisinopril. continue cardizem. (3) Heart failure, systolic, with acute decompensation Comment: Lasix held for pt in NPO for stress test strict i/o, daily weights fluid restriction to follow (4) Afib Comment: Currently in NSR. Continue Cardizem. (5) DVT prophylaxis Comment: Lovenox Status and Disposition: inpatient
[2018-12-08] MEDS: SAW PALMETTO FRUIT 450 MG PO SCH (09:56)
[2018-12-08] MEDS ORDERED: Regadenoson* 0.4 MG/5 ML SYRINGE ONE (11:31)
[2018-12-08] MEDS: Aspirin 81 mg CHEW TAB* 81 MG TAB.CHEW PO SCH (13:28)
[2018-12-08] MEDS: Ascorbic Acid TAB* 500 MG PO SCH (13:28)
[2018-12-08] MEDS: Enoxaparin(*) 40 MG/0.4 ML SYR SUBCUT SCH (13:29)
--- NOTE | 2018-12-08 23:05 | DS ---
CC: Dr. Yosvany Ruiz; Dr. Dheeraj Stewart.* DISCHARGE SUMMARY: DATE OF ADMISSION: 12/06/18 DATE OF DISCHARGE: 12/08/18 PRIMARY CARE PROVIDER: Dr. Yosvany Ruiz. INSTRUCTOR [employer]: Dr. Dheeraj Stewart. DISCHARGE DIAGNOSES: 1. Acute diastolic congestive heart failure. 2. Mild cardiomyopathy with EF documented at 45% to 50%. SECONDARY DIAGNOSES: 1. History of sick sinus syndrome status post pacemaker placement in the past. 2. History of atrial fibrillation paroxysmal. The patient has declined anticoagulation in the past. 3. Hypertension. 4. Benign prostatic hypertrophy. 5. Obstructive sleep apnea, on CPAP. MEDICATIONS AT DISCHARGE: Include: 1. Vitamin C 1000 mg b.i.d. 2. Aspirin 81 mg daily. 3. Diltiazem XR 180 mg q.p.m. 4. Saw palmetto 450 mg b.i.d. 5. Furosemide 20 mg every other day. 6. Potassium chloride 20 mEq every other day. 7. Lisinopril 2.5 mg daily. The last 3 medications are new. LABORATORY DATA AND STUDIES PERFORMED DURING THE HOSPITAL STAY: Included: On 12/07/18: Sodium of 139, potassium 3.5, chloride 105, carbon dioxide 28, BUN 17 , creatinine 1.07. Liver function tests are unremarkable. Troponin maximum of 0.04. Cholesterol profile shows triglycerides of 137, cholesterol total of 164 , LDL of 91, and HDL of 46. The patient's TSH was 3.05 at admission. CBC on : White blood cell count 10.0, hemoglobin of 13.2, hematocrit of 39, and platelets of 203,000. Transthoracic echocardiogram obtained on 12/06/18 showed EF of 45% to 50% with abnormal ventricular septal wall motion consistent with right ventricular pacemaker. The basal inferior and mid inferior wall segments are hypokinetic. The pacemaker wire was visualized in the right ventricle. There were no significant changes compared with the previous study done on 05/14/17. Cardiac stress test which was a treadmill nuclear cardiac stress test documented on 12/08/18 showed, impression: "There is an appearance of fixed uptake defect involving the inferior myocardium on both stress and rest imaging. Potentially, this is the consequence of lack of attenuation correction as the patient was unable to undergo CT imaging. The ejection fraction is borderline at 51% and dynamic imaging fails to show complete endocardial apposition during systolic contraction. There is no paradoxical wall motion. Assessment intermediate risk." The results of the above mentioned cardiac stress test were compared by myself from the cardiac stress test documented in 2017. At that point, the patient also had fixed inferior wall defect that was already known at that point. The patient's weight at discharge is 210 pounds. 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 The patient has a history of status post pacemaker placement for sick sinus syndrome. The patient was noted to have also some leg edema and his weight was 215 pounds. He was diagnosed with congestive heart failure and his portable chest x-ray obtained on admission was read as cardiomegaly with interstitial edema consistent with CHF. His brain natriuretic peptide was 193 at admission. The patient diuresed well with a weight of 210 pounds at the time of discharge. Due to history of chest pain, the patient had a cardiac stress test that he underwent on 12/08/18. It showed an intermediate probability with EF of 51% and fixed defect in the inferior wall. That appeared to be similar in Dr. Stewart's note of the stress test the patient had performed in 2017. At this point, the patient's mildly elevated troponin was likely due to demand ischemia secondary to CHF. The patient has not regarded and watched his diet for low sodium. He stated that his pressures sometimes go to 150 systolically. I believe he has diastolic component to his congestive heart failure that is more likely due to uncontrolled hypertension. His systolic pressures here had been in the 170s to 140s range. At this point, the patient is going to be placed on low dose of DUSTY inhibitor and treated with lisinopril. Also continue Lasix 3 times a week with potassium supplement. The patient's weight at discharge is 210 pounds and he is recommended to follow up with his weights on a daily basis and to report to his primary care provider if his weights increase or decrease over 3 pounds. He is recommended to follow up with Dr. Ruiz in approximately 4 to [address] Stewart in approximately 2 weeks. For physical exam at discharge, please see daily progress notes. [id number]/[facility] #: [id number] [facility]
[2018-12-09] MEDS ORDERED: Lisinopril TAB* 5 MG PO SCH (09:00)
== END 2018-12-08 16:30 | disposition home or self-care (01) | DRG 292 ==
LOC: ED 08:40 → MED 11:32 → OBSVTOIN 12-07 15:00
PROVIDERS: ADMIT Internal Medicine; ATTEND Internal Medicine
PROC: 4A12XM4 Monitoring of Cardiac Stress, External Approach (ICD-10-PCS; principal; 2018-12-08)
PROC: 5A09357 Assistance with Respiratory Ventilation, Less than 24 Consecutive Hours, Continuous Positive Airway Pressure (ICD-10-PCS; 2018-12-08)
DX: I11.0 Hypertensive heart disease with heart failure (principal); I24.8 Other forms of acute ischemic heart disease; E78.5 Hyperlipidemia, unspecified; E66.9 Obesity, unspecified; M19.90 Unspecified osteoarthritis, unspecified site; M10.9 Gout, unspecified; I25.10 Atherosclerotic heart disease of native coronary artery without angina pectoris; I50.43 Acute on chronic combined systolic (congestive) and diastolic (congestive) heart failure; I42.9 Cardiomyopathy, unspecified; I48.0 Paroxysmal atrial fibrillation; N40.0 Benign prostatic hyperplasia without lower urinary tract symptoms; Z96.653 Presence of artificial knee joint, bilateral; G47.33 Obstructive sleep apnea (adult) (pediatric); Z79.82 Long term (current) use of aspirin; Z88.8 Allergy status to other drugs, medicaments and biological substances; Z95.0 Presence of cardiac pacemaker; Z91.040 Latex allergy status; Z72.89 Other problems related to lifestyle; Z82.49 Family history of ischemic heart disease and other diseases of the circulatory system; Z80.0 Family history of malignant neoplasm of digestive organs; Z68.31 Body mass index [BMI] 31.0-31.9, adult
CPT/HCPCS: 36415; 71045; 78452; 80048; 80053; 80061; 83605; 83735; 83880; 84443; 84484; 85025; 85610; 93005; 93017; 93306; 94660; 99284; A9270-GY; A9502; J1650; J1940; J2785

== ENCOUNTER 2020-02-14 08:01 | Emergency (ER) | payer MEDICARE, BC ==
[2020-02-14] MEDS ORDERED: Lidocaine 2.5%/Prilocain 2.5%* 5 GM TUBE TOPICAL ONE (08:12)
--- NOTE | 2020-02-14 08:12 | UC ---
General HPI - HPI Summary HPI Summary: Noted tick R upper arm, underside. Tried to dig the tick out last night, but to no avail. No fever / chills. No cough / cold / acute uri sx. Hx sick sinus synd s/p pacemaker placement Diast heart failure Nov 2018. Last tet - can't remember. - History of Current Complaint Stated Complaint: TICK Time Seen by Provider: 02/14/20 08:11 Hx Obtained From: Patient - Allergy/Home Medications Allergies/Adverse Reactions: Allergies Allergy/AdvReac Type Severity Reaction Status Date / Time Latex, Natural Rubber Allergy Intermediate See Comment Verified 02/14/20 08:17 metoprolol [From Toprol XL] Allergy See Comment Verified 02/14/20 08:17 Home Medications: Home Medications Diltiazem XR EXTEND Releas(NF) [Cartia XR (NF)] 180 mg PO QPM 11/12/17 [History Confirmed 02/14/20] Ascorbic Acid [Vitamin C] 1,000 mg PO BID 04/13/18 [History Confirmed 02/14/20] Saw [place] Fruit [Saw [place]] 450 mg PO BID 04/13/18 [History Confirmed 04/29] Aspirin 81 mg CHEW TAB* 81 mg PO DAILY 12/06/18 [History Confirmed 02/14/20] Furosemide TAB* [Lasix TAB*] 20 mg PO EVERY OTHER DAY #15 tab 12/08/18 [Rx Confirmed 02/14/20] Potassium Chlor TAB* [Potassium Chlor TAB 20 MEQ*] 20 meq PO EVERY OTHER DAY # 15 tab.er 12/08/18 [Rx Confirmed 02/14/20] lisinopriL [Lisinopril 2.5 MG-] 2.5 mg PO DAILY #30 tab 12/08/18 [Rx Confirmed 02/14/20] DOXYcycline CAP(*) [DOXYcycline 100MG CAP(*)] 100 mg PO BID #14 cap 02/14/20 [Rx ] PMH/Surg Hx/FS Hx/Imm Hx Previously Healthy: Yes - see hpi, currently in good state of health - Surgical History Surgical History: Yes Surgery Procedure, Year, and Place: Colonscopy w/biopsies 08[place] [facility] [place] Dual chamber pacemaker implant 08/20 [facility] [place]. Colonoscopy w/biopsies 07/22 [facility] [place]. RIGHT TOTAL KNEE REPLACEMENT 11/[place] [facility] [place] - Family History Known Family History: Positive: Cardiac Disease - Social History Alcohol Use: Occasionally Alcohol Amount: 1 GLASS WINE WITH DINNER Substance Use Type: None Smoking Status (MU): Never Smoked Tobacco Have You Smoked in the Last Year: No - Immunization History Most Recent Influenza Vaccination: never Most Recent Tetanus Shot: up to date Most Recent Pneumonia Vaccination: never Review of Systems All Other Systems Reviewed And Are Negative: Yes Constitutional: Positive: Negative Skin: Positive: Other - see hpi Eyes: Positive: Negative ENT: Positive: Negative Respiratory: Positive: Negative Cardiovascular: Positive: Negative Gastrointestinal: Positive: Negative Genitourinary: Positive: Negative Motor: Positive: Other - no c/o Neurovascular: Positive: Negative Musculoskeletal: Positive: Negative Neurological/Mental Status: Positive: Negative Psychological: Positive: Negative Is Patient Immunocompromised?: No Physical Exam Triage Information Reviewed: Yes Appearance: Well-Appearing, Well-Nourished Vital Signs Reviewed: Yes Eye Exam: Normal ENT Exam: Normal Neck exam: Normal Neck: Positive: Supple Respiratory Exam: Normal - RR normal, no cough, no tachypnea, no dyspnea Cardiovascular Exam: Normal - HR normal, nondiaphoretic. No c/o palpitation Abdominal Exam: Normal Musculoskeletal Exam: Normal - moves x 4 ext's gait steady Neurological Exam: Normal - grossly nonfocal Psychological Exam: Normal - nad Skin Exam: Normal - nondiaphoretic R upper underarm with + tick parts and redness present. No fluctuant. There is periwound induration and redness, extending approx 6cm. Mostly blanching with the exception of the actual bite site, where there is hyperemia and central small necrotic region. Course/Dx - Course Course Of Treatment: Reviewed medications / allergies. Confirmed that latex allergy is rash. He would like boostrix here. Order placed to remove rubber stopper (if this is the case) prior to injection. EMLA applied x 15 min. Tick subsequently removed via splinter forceps and #18 g needle. Inspected with magnifier light, no remaining parts noted. He does have some evidence of cellulitis. While this indeed all could be dermatitis 2/2 tick bite, will rx accordingly. D/w pt. Reviewed coa / tx plan. Questions as posed answered to the best of my ability. - Diagnoses Provider Diagnosis: Tick bite Discharge ED - Sign-Out/Discharge Documenting (check all that apply): Patient Departure All imaging exams completed and their final reports reviewed: No Studies - Discharge Plan Condition: Stable Disposition: HOME Prescriptions: DOXYcycline CAP(*) [DOXYcycline 100MG CAP(*)] 100 mg PO BID #14 cap Patient Education Materials: Diphtheria/Acellular Pertussis/Tetanus Booster Vaccine (By injection), Tick Bite (ED) Referrals: Yosvany Ruiz DO [Primary Care Provider] - Additional Instructions: THIN layer bacitracin once daily. AVOID neosporin more than once or twice. Keep area clean and dry. Mild white soap for hygiene. Follow up with your primary care physician, per routine. Please seek medical attention for worse or new problems. - Billing Disposition and Condition Condition: STABLE Disposition: Home
[2020-02-14 08:23] VITALS: BP 153/80
[2020-02-14] MEDS ORDERED: Tetan/Diph/Pertus SYR(Tdap)* 0.5 ML SYR(BOOSTRIX) use SYR contains LATEX IM ONE (08:32)
== END 2020-02-14 09:16 | disposition home or self-care (01) ==
LOC: UCEAST 08:01
DX: S40.861A Insect bite (nonvenomous) of right upper arm, initial encounter (principal); W57.XXXA Bitten or stung by nonvenomous insect and other nonvenomous arthropods, initial encounter; Y92.9 Unspecified place or not applicable; Z23 Encounter for immunization; Z79.82 Long term (current) use of aspirin; Z95.810 Presence of automatic (implantable) cardiac defibrillator; Z96.651 Presence of right artificial knee joint; Z88.8 Allergy status to other drugs, medicaments and biological substances; Z91.040 Latex allergy status
CPT/HCPCS: 90471; 90715; 99212; A9270-GY; G0463

== ENCOUNTER 2020-12-28 19:40 | Inpatient (IN) ==
[2020-12-28] MEDS ORDERED: NS 0.9% 1000 ml BAG 1,000 ML IV ONE (19:44)
[2020-12-28] MEDS ORDERED: Iodixanol (CONTRAST) 320 MG/ML 100 ML SDV IV ONE (20:00)
[2020-12-28] MEDS ORDERED: ALTEPLASE IV ONE (20:37)
[2020-12-28] MEDS ORDERED: Alteplase (100 mg Vial) 100 MG in Premix IV 100 ML IV ONE (20:39)
[2020-12-28] MEDS ORDERED: Alteplase (100 mg Vial) 100 mg VIAL IV ONE (20:45)
[2020-12-28 20:49] LABS: ABS Basophils 0.1 10^3/ul (0-0.2); ABS Eosinophils 0.2 10^3/ul (0-0.6); ABS Lymphocytes 1.7 10^3/ul (1.0-4.8); ABS Monocytes 0.8 10^3/ul (0-0.8); ABS Neutrophils 6.7 10^3/ul (1.5-7.7); Eosinophil % 1.9 %; Hematocrit 38 % (42-52); Hemoglobin 13.2 g/dL (14.0-18.0); Lymphocyte % 17.8 %; Mean Corpuscular HGB Conc 34 g/dL (31-36); Mean Corpuscular Hemoglobin 32 pg (27-31); Mean Corpuscular Volume 92 fL (80-94); Platelet Count 211 10^3/uL (150-450); Red Blood Count 4.17 10^6 /uL (4.18-5.48); Red Cell Distribution Width 13 % (10-15); White Blood Count 9.4 10^3/uL (3.5-10.8)
[2020-12-28 20:53] LABS: Urine Appearance Clear; Urine Bilirubin Negative (Negative); Urine Blood Negative (Negative); Urine Color Straw; Urine Glucose Negative (Negative); Urine Ketones Negative (Negative); Urine Nitrite Negative (Negative); Urine Protein Negative (Negative); Urine Specific Gravity 1.016 (1.010-1.030); Urine Urobilinogen Negative (Negative)
[2020-12-28 21:07] LABS: ALT 31 U/L (7-52); AST 22 U/L (13-39); Albumin 4.3 g/dL (3.2-5.2); Albumin/Globulin Ratio 2.2 (1-3); Alkaline Phosphatase 55 U/L (34-104); Anion Gap 7 mmol/L (2-11); BUN/Creatinine Ratio 18.6 (8-20); Blood Urea Nitrogen 24 mg/dL (6-24); CO2 Carbon Dioxide 27 mmol/L (22-32); Calcium 8.8 mg/dL (8.6-10.3); Chloride 105 mmol/L (101-111); Cholesterol 189 mg/dL; EGFR African American 65.3 (>60); Glucose 85 mg/dL (70-100); HDL Cholesterol 44.7 mg/dL; LDL Cholesterol 115 mg/dL; Potassium 3.8 mmol/L (3.5-5.0); Sodium 139 mmol/L (135-145); Total Protein 6.3 g/dL (6.4-8.9); Triglycerides 146 mg/dL
[2020-12-28 21:11] LABS: Troponin I 0.05 ng/mL (<0.03)
[2020-12-29 06:25] LABS: ABS Eosinophils 0.2 10^3/ul (0-0.6); ABS Lymphocytes 1.5 10^3/ul (1.0-4.8); ABS Neutrophils 5.7 10^3/ul (1.5-7.7); Eosinophil % 2.6 %; Hematocrit 37 % (42-52); Hemoglobin 12.7 g/dL (14.0-18.0); Lymphocyte % 17.5 %; Mean Corpuscular HGB Conc 34 g/dL (31-36); Mean Corpuscular Hemoglobin 31 pg (27-31); Mean Corpuscular Volume 91 fL (80-94); Mean Platelet Volume 9.5 fL (7.4-10.4); Platelet Count 208 10^3/uL (150-450); Red Blood Count 4.07 10^6 /uL (4.18-5.48); Red Cell Distribution Width 13 % (10-15); White Blood Count 8.4 10^3/uL (3.5-10.8)
[2020-12-29 06:39] LABS: Activated Partial Thrombo Time 26.3 seconds (26.0-38.0); INR 1.08 (0.82-1.09)
[2020-12-29 06:49] LABS: ALT 28 U/L (7-52); AST 19 U/L (13-39); Albumin 4.1 g/dL (3.2-5.2); Albumin/Globulin Ratio 1.9 (1-3); Alkaline Phosphatase 54 U/L (34-104); Anion Gap 7 mmol/L (2-11); BUN/Creatinine Ratio 15.8 (8-20); Blood Urea Nitrogen 19 mg/dL (6-24); CO2 Carbon Dioxide 27 mmol/L (22-32); Calcium 8.6 mg/dL (8.6-10.3); Chloride 107 mmol/L (101-111); EGFR Non-African American 58.7 (>60); Globulin 2.2 g/dL (2-4); Glucose 110 mg/dL (70-100); Magnesium 2.1 mg/dL (1.9-2.7); Phosphorus 2.9 mg/dL (2.5-5.0); Potassium 3.4 mmol/L (3.5-5.0); Sodium 141 mmol/L (135-145); Total Protein 6.3 g/dL (6.4-8.9)
[2020-12-29 06:57] LABS: Troponin I 0.05 ng/mL (<0.03)
[2020-12-29] MEDS ORDERED: Potassium Chlor 20 meq TAB.ER PO ONE (08:22)
[2020-12-29] MEDS ORDERED: Perflutren Lipid Microsphere 3 ML VIAL ONE (09:14)
[2020-12-29 09:18] LABS: T4, Total 6.92 mcg/dL (6.09-12.23)
[2020-12-29] MEDS: KCL 20 MEQ/100 ML IVPREMIX 20 MEQ/100 ML BAG IV SCH ×2 (09:19→11:48)
[2020-12-29 09:22] LABS: TSH Ultra Thyroid Stim Horm 3.37 mcIU/mL (0.34-5.60)
[2020-12-30 05:29] LABS: Hematocrit 40 % (42-52); Hemoglobin 13.5 g/dL (14.0-18.0); Mean Corpuscular HGB Conc 33 g/dL (31-36); Mean Corpuscular Hemoglobin 31 pg (27-31); Mean Corpuscular Volume 93 fL (80-94); Mean Platelet Volume 9.8 fL (7.4-10.4); Platelet Count 211 10^3/uL (150-450); Red Blood Count 4.35 10^6 /uL (4.18-5.48); Red Cell Distribution Width 13 % (10-15); White Blood Count 10.4 10^3/uL (3.5-10.8)
[2020-12-30 05:50] LABS: INR 1.06 (0.82-1.09)
[2020-12-30 05:53] LABS: Anion Gap 8 mmol/L (2-11); BUN/Creatinine Ratio 14.5 (8-20); Blood Urea Nitrogen 17 mg/dL (6-24); CO2 Carbon Dioxide 24 mmol/L (22-32); Calcium 8.9 mg/dL (8.6-10.3); Chloride 107 mmol/L (101-111); EGFR African American 73.1 (>60); EGFR Non-African American 60.4 (>60); Glucose 105 mg/dL (70-100); Phosphorus 3.5 mg/dL (2.5-5.0); Potassium 3.8 mmol/L (3.5-5.0); Sodium 139 mmol/L (135-145)
[2020-12-30 10:34] LABS: Troponin I 0.05 ng/mL (<0.03)
[2020-12-30 17:16] LABS: Vitamin B12 223 pg/mL (180-914)
[2020-12-31 11:47] VITALS: BP 156/87
== END 2020-12-31 17:00 | disposition home or self-care (01) | DRG 61 ==
LOC: ED 19:40 → ICU 21:18 → MED 12-30 16:10
PROVIDERS: ADMIT Internal Medicine; ATTEND Internal Medicine